=== PATIENT | female | born 1970 | race Caucasian/White ===

== ENCOUNTER 2017-02-26 15:46 | Emergency (ER) | payer OTHER, SELFPAY ==
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
== END 2017-02-26 17:50 | disposition home or self-care (01) ==
LOC: MW.ED 15:46
CPT/HCPCS: 99281; 99283

== ENCOUNTER 2017-06-23 14:18 | Emergency (ER) | payer OTHER, SELFPAY ==
[2017-06-23] MEDS ORDERED: Ketorolac 30 MG/ML SDV IVPUSH ONE (14:58)
[2017-06-23] MEDS ORDERED: Sodium Chloride 0.9% 2.5 ML Syringe FLUSH PRN (14:58)
[2017-06-23] MEDS ORDERED: Sodium Chloride 0.9% 10 ML Syringe FLUSH PRN (14:58)
[2017-06-23 15:19] LABS: CHLORIDE,CL 108 mmol/L (98-110); SODIUM,NA 140 mmol/L (136-146)
[2017-06-23] MEDS ORDERED: Sodium Chloride 0.9% 1,000 ML IV ONE (15:23)
--- NOTE | 2017-06-23 15:47 | US ---
EXAMINATION: Right upper quadrant ultrasound HISTORY: Pain COMPARISON: None TECHNIQUE: Grayscale and color Doppler images obtained of the right upper quadrant. FINDINGS: The visualized pancreas appears normal. The liver is normal in contour and mildly increase d in echogenicity without a focal hepatic mass. The gallbladder wall thickness is mildly prominent h owever the gallbladder is minimally filled. No cholelithiasis identified. Common bile duct measures 4 mm. The sonographic Aquino sign is reported positive. The right kidney measures 10 cm [id number] without evidence of hydronephrosis. IMPRESSION: 1. Positive sonographic Aquino sign with mild gallbladder wall thickening. However the gallbladder i s minimally filled and no shadowing gallstones identified. 2. Mild fatty infiltration of the liver.
--- NOTE | 2017-06-23 15:57 | EDM.PDOC ---
ED HPI GENERAL MEDICAL PROBLEM - General Chief Complaint: Abdominal Pain Stated Complaint: PAIN ON RIGHT SIDE OF ABDOMEN Time Seen by Provider: 06/23/17 14:39 Source of Information: Reports: Patient History Limitations: Reports: No Limitations - History of Present Illness INITIAL COMMENTS - FREE TEXT/NARRATIVE: HISTORY AND PHYSICAL: History of present illness: [39-year-old female with a previous history of gallstones for which she never followed up with surgery now presents emergency department complaining of right upper quadrant abdominal pain. Patient moved to [facility] 5 months ago. Though she had a prior diagnosis of gallstones it had not been bothering her since she moved to [facility]. Last night she of old right upper quadrant pain which worsened overnight. It is worse with movement and with pushing on her abdomen under her right ribs. She's had several episodes of nausea and vomiting and some loose stool as well. Patient takes her gallbladder is acting up. Review of systems: As per history of present illness and below otherwise all systems reviewed and negative. Past medical history: As per history of present illness and as reviewed below otherwise noncontributory. Surgical history: As per history of present illness and as reviewed below otherwise noncontributory. Social history: No reported history of drug or alcohol abuse. Family history: As per history of present illness and as reviewed below otherwise noncontributory. Physical exam: Alert well-appearing no acute distress positive right upper quadrant tenderness no CVA tenderness nontender McBurney's point remainder of exam is benign with normal bowel sounds HEENT: Atraumatic, normocephalic, pupils reactive, negative for conjunctival pallor or scleral icterus, mucous membranes moist, throat clear, neck supple, nontender, trachea midline. Lungs: Clear to auscultation, breath sounds equal bilaterally, chest nontender. Heart: S1S2, regular, negative for clicks, rubs, or JVD. Abdomen: Soft, nondistended, exam as above Negative for masses or hepatosplenomegaly. Negative for costovertebral tenderness. Pelvis: Stable nontender. 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: Deferred. Rectal: Deferred. Extremities: Atraumatic, negative for cords or calf pain. Neurovascular unremarkable. Neuro: Awake, alert, oriented. Cranial nerves grossly unremarkable. Cerebellum unremarkable. Motor and sensory unremarkable throughout. Exam nonfocal. Diagnostics: [Ultrasound the abdomen and full laboratory workup pending] Therapeutics: [IV fluids Toradol and Zofran] Impression: [Abdominal pain] Plan: [Signs and symptoms consistent with exacerbation of biliary disease with cholelithiasis known to this patient but never treated. Full workup pending vital signs stable and well-appearing patient.] Mild gallbladder wall thickening with suggestion of a positive Aquino's sign however no stones or distention visible normal common bile duct. No pericholecystic fluid or other secondary findings of cholecystitis. Patient's laboratory workup is completely unremarkable. She appears to have a clearly identifiable contributory anxiety component to her presentation today. Significantly improved after Ativan and analgesia. Her vital signs are stable and she is well-appearing with no active nausea vomiting and pain is well controlled. Case discussed with Dr. Wilfredo Olsen surgery business analysis professional who is aware of history and findings and agrees with outpatient follow-up in the office tomorrow for reevaluation and to discuss further workup and treatment as needed. Definitive disposition and diagnosis as appropriate pending reevaluation and review of above. Right Abdominal Pain Score (Numeric/FACES): 6 - Related Data Allergies Allergy/AdvReac Type Severity Reaction Status Date / Time codeine Allergy Rash Verified 07/19/17 22:46 Sulfa (Sulfonamide Allergy Chills Verified 07/19/17 22:46 Antibiotics) Home Meds: Home Meds ClonazePAM [KlonoPIN] 1 mg PO BID 06/23/17 [History] Lansoprazole [Prevacid] 15 mg PO DAILY 06/23/17 [History] Sertraline [Zoloft] 100 mg PO DAILY 06/23/17 [History] traZODone 150 mg PO DAILY 06/23/17 [History] oxyCODONE 1 tab PO ASDIRECTED PRN 07/08/17 [History] Past Medical History - Past Health History Medical/Surgical History: Denies Medical/Surgical History Respiratory History: Reports: Asthma 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: Psychiatric History: Reports: Anxiety, Bipolar, Depression, Psych Hospitalization(s), PTSD - Infectious Disease History Infectious Disease History: Reports: Chicken Pox Social & Family History - Family History Family Medical History: Noncontributory - Tobacco Use Smoking Status *Q: Never Smoker Second Hand Smoke Exposure: No - Caffeine Use Caffeine Use: Reports: Soda, Tea - Recreational Drug Use Recreational Drug Use: No ED ROS GENERAL - Review of Systems Review Of Systems: See Below (History of present illness) ED EXAM, GENERAL - Physical Exam Exam: See Below (History of present illness) Course - Vital Signs Last Recorded V/S: Last Vital Signs Temp 36.0 C 06/23/17 19:07 Pulse 56 L 06/23/17 19:07 Resp 16 06/23/17 19:07 BP 126/58 L 06/23/17 19:07 Pulse Ox 94 L 06/23/17 19:07 - Orders/Labs/Meds Labs: Laboratory Tests 06/23/17 06/23/17 06/23/17 Range/Units 14:44 14:44 14:44 WBC 7.04 (4.0-11.0) K/uL RBC 4.17 L (4.30-5.90) M/uL Hgb 13.3 (12.0-16.0) g/dL Hct 38.2 (36.0-46.0) % MCV 91.6 (80.0-98.0) fL MCH 31.9 (27.0-32.0) pg MCHC 34.8 (31.0-37.0) g/dL RDW Std Deviation 42.8 (28.0-62.0) fl RDW Coeff of Fina 13 (11.0-15.0) % Plt Count 184 (150-400) K/uL MPV 10.90 (7.40-12.00) fL Neut % (Auto) 63.0 (48.0-80.0) % Lymph % (Auto) 27.7 (16.0-40.0) % [place] % (Auto) 6.5 (0.0-15.0) % Eos % (Auto) 2.4 (0.0-7.0) % Baso % (Auto) 0.4 (0.0-1.5) % Neut # (Auto) 4.4 (1.4-5.7) K/uL Lymph # (Auto) 2.0 (0.6-2.4) K/uL [place] # (Auto) 0.5 (0.0-0.8) K/uL Eos # (Auto) 0.2 (0.0-0.7) K/uL Baso # (Auto) 0.0 (0.0-0.1) K/uL Nucleated RBC % 0.0 /100WBC Nucleated RBCs # 0 K/uL Sodium 140 (136-146) mmol/L Potassium 3.6 (3.5-5.1) mmol/L Chloride 108 (98-110) mmol/L Carbon Dioxide 24 (21-31) mmol/L BUN 8 (6.0-23.0) mg/dL Creatinine 0.9 (0.6-1.5) mg/dL Est Cr Clr Drug Dosing TNP Estimated GFR (MDRD) > 60.0 ml/min Glucose 109 (60-110) mg/dL Calcium 8.7 L (8.8-10.8) mg/dL Total Bilirubin 0.3 (0.1-1.5) mg/dL AST 16 (5-40) IU/L ALT 17 (8-54) IU/L Alkaline Phosphatase 102 (40-150) Total Protein 6.9 (6.0-8.0) g/dL Albumin 3.8 (3.5-5.0) g/dL Globulin 3.1 (2.0-3.5) g/dL Albumin/Globulin Ratio 1.2 L (1.3-2.8) Lipase 12 (7-80) U/L Urine Color YELLOW Urine Appearance CLEAR Urine pH 6.0 (5.0-8.0) Ur Specific [place] <= 1.005 (1.001-1.035) Urine Protein NEGATIVE (NEGATIVE) mg/dL Urine Glucose (UA) NEGATIVE (NEGATIVE) mg/dL Urine Ketones NEGATIVE (NEGATIVE) mg/dL Urine Occult Blood NEGATIVE (NEGATIVE) Urine Nitrite NEGATIVE (NEGATIVE) Urine Bilirubin NEGATIVE (NEGATIVE) Urine Urobilinogen 0.2 (<2.0) EU/dL Ur Leukocyte Esterase SMALL (NEGATIVE) Urine RBC ns (0-2/HPF) Urine WBC 2-4 (0-5/HPF) Ur Epithelial Cells RARE (NONE-FEW) Amorphous Sediment NOT SEEN (NEGATIVE) Urine Bacteria NOT SEEN (NEGATIVE) Urine Mucus NOT SEEN (NONE-MOD) Meds: Medications Discontinued Medications Generic Name Dose Route Start Last Admin Trade Name Freq PRN Reason Stop Dose Admin Hydromorphone HCl 0.5 mg 06/23/17 16:42 06/23/17 16:48 Dilaudid IVPUSH 06/23/17 16:43 0.5 mg ONETIME ONE Administration Hydromorphone HCl 1 mg 06/23/17 17:45 06/23/17 18:08 Dilaudid IM 06/23/17 17:46 1 mg ONETIME ONE Administration Sodium Chloride 1,000 mls @ 999 mls/hr 06/23/17 15:23 06/23/17 15:49 Normal Saline IV 06/23/17 16:23 999 mls/hr STAT ONE Administration Ketorolac Tromethamine 30 mg 06/23/17 14:58 06/23/17 15:48 Toradol IVPUSH 06/23/17 14:59 30 mg ONETIME ONE Administration Lorazepam 0.5 mg 06/23/17 17:49 06/23/17 18:14 Ativan IVPUSH 06/23/17 17:50 0.5 mg ONETIME ONE Administration Ondansetron HCl 4 mg 06/23/17 17:49 06/23/17 18:08 Zofran IVPUSH 06/23/17 17:50 4 mg ONETIME ONE Administration Sodium Chloride 10 ml 06/23/17 14:58 06/23/17 15:49 Saline Flush FLUSH 10 ml ASDIRECTED PRN Administration Keep Vein Open Sodium Chloride 2.5 ml 06/23/17 14:58 06/23/17 15:49 Saline Flush FLUSH 2.5 ml ASDIRECTED PRN Administration Keep Vein Open Departure - Departure Time of Disposition: 18:36 Disposition: Home, Self-Care 01 Condition: Good Clinical Impression: Right upper quadrant abdominal pain, Thickening of wall of gallbladder, Anxiety - Discharge Information Instructions: Abdominal Pain, Adult, [id number] Referrals: Baylee Gonzalez NP [Primary Care Provider] - Wilfredo White MD [Physician] - Forms: ED Department Discharge Additional Instructions: Your gallbladder does show some very mild wall thickening on the ultrasound. There are no signs of a surgical emergency and no stones were visible. It is possible that your pain may be from very mild inflammation in the gallbladder however it is draining normally per the ultrasound results. The results of your laboratory studies are all reassuring and do not reflect any surgical emergency. You may need to have your gallbladder out as an outpatient, and it's important that you follow-up with surgery tomorrow as directed to discuss your case further. Your situation has been discussed with Dr. Villalobos leave the surgeon on-call today. He is aware the history and findings today and will be happy to see you in his office tomorrow. Call first thing the morning for an appointment tomorrow. Make sure the staff is aware that Dr. Amador in the emergency department spoke with Dr. White and he dated specifically that he wants to fit you into his full schedule tomorrow. Take Zofran by putting one pill under your tongue every 4 hours as needed for nausea, take ibuprofen 800 mg every 6 hours as needed for pain, and use Naylor one every 6 hours as needed for breakthrough pain. Do not take any muscle relaxants or drink any alcohol in addition to this narcotic.
[2017-06-23] MEDS ORDERED: HYDROmorphone 2 MG/ML Syringe IVPUSH ONE (16:42)
[2017-06-23] MEDS ORDERED: HYDROmorphone 1 MG/ML Syringe IM ONE (17:45)
[2017-06-23] MEDS ORDERED: Ondansetron 4 MG/2 ML SDV IVPUSH ONE (17:49)
[2017-06-23] MEDS ORDERED: LORazepam 2 MG/ML MDV IVPUSH ONE (17:49)
[2017-06-23 19:14] VITALS: BP 126/58
== END 2017-06-23 19:34 | disposition home or self-care (01) ==
LOC: MW.ED 14:18
DX: K82.9 Disease of gallbladder, unspecified (principal); F41.9 Anxiety disorder, unspecified; J45.909 Unspecified asthma, uncomplicated; F32.9 Major depressive disorder, single episode, unspecified; Z88.5 Allergy status to narcotic agent; Z88.2 Allergy status to sulfonamides; Z79.899 Other long term (current) drug therapy
CPT/HCPCS: 76705; 80053; 81001; 83690; 85025; 96361; 96374; 96375; 99284; J1170; J1885; J2060; J2405; J7040

== ENCOUNTER 2017-06-26 19:04 | Emergency (ER) | payer OTHER, SELFPAY ==
[2017-06-26] MEDS ORDERED: Ketorolac 30 MG/ML SDV IVPUSH ONE (19:22)
[2017-06-26] MEDS ORDERED: Sodium Chloride 0.9% 1,000 ML IV ONE (19:22)
[2017-06-26] MEDS ORDERED: Ondansetron 4 MG/2 ML SDV IVPUSH ONE ×2 (19:22→20:09)
[2017-06-26 20:06] LABS: CHLORIDE,CL 107 mmol/L (98-110); SODIUM,NA 140 mmol/L (136-146)
--- NOTE | 2017-06-26 20:07 | EDM.PDOC ---
ED HPI GENERAL MEDICAL PROBLEM - General Chief Complaint: Abdominal Pain Stated Complaint: GALLBLADDER Time Seen by Provider: 06/26/17 19:05 Source of Information: Reports: Patient History Limitations: Reports: No Limitations - History of Present Illness INITIAL COMMENTS - FREE TEXT/NARRATIVE: History of present illness: 47-year-old female presenting with complaints of upper abdominal pain. Patient indicates that she had a workup a few days ago and it was determined that there was some problem with her gallbladder but that there were not stone specific. Patient was seen by Dr. Olsen who indicated that he wanted further diagnostic exams. Patient indicated that the pain has returned it is worse and she cannot tolerate it. Patient reports nausea vomiting and diarrhea. Review of systems: As per history of present illness and below otherwise all systems reviewed and negative. Past medical history: As per history of present illness and as reviewed below otherwise noncontributory. Surgical history: As per history of present illness and as reviewed below otherwise noncontributory. Social history: No reported history of drug or alcohol abuse. Family history: As per history of present illness and as reviewed below otherwise noncontributory. Physical exam: HEENT: Atraumatic, normocephalic, pupils reactive, negative for conjunctival pallor or scleral icterus, mucous membranes moist, throat clear, neck supple, nontender, trachea midline. Lungs: Clear to auscultation, breath sounds equal bilaterally, chest nontender. Heart: S1S2, regular, negative for clicks, rubs, or JVD. Abdomen: Soft, distended abdomen tender in bilateral upper quadrants. Negative for masses or hepatosplenomegaly. Negative for costovertebral tenderness. Pelvis: Stable nontender. 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: Deferred. Rectal: Deferred. Extremities: Atraumatic, negative for cords or calf pain. Neurovascular unremarkable. Neuro: Awake, alert, oriented. Cranial nerves II through XII unremarkable. Cerebellum unremarkable. Motor and sensory unremarkable throughout. Exam nonfocal. Dr. Olsen present in ED for consult evaluated patient when he went into the room patient was asleep apparently intractable pain was resolved Diagnostics: [CBC, CMP, CT of abdomen with contrast] Therapeutics: [IV fluid, Toradol, Zofran] Impression: [Abdominal pain] Plan: [HIDA scan on Thursday per Dr. Olsen] Definitive disposition and diagnosis as appropriate pending reevaluation and review of above. Right Upper Abdomen Pain Score (Numeric/FACES): 10 - Related Data Allergies Allergy/AdvReac Type Severity Reaction Status Date / Time codeine Allergy Rash Verified 02/26/17 16:12 Sulfa (Sulfonamide Allergy Chills Verified 06/26/17 19:21 Antibiotics) Home Meds: Home Meds ClonazePAM [KlonoPIN] 1 mg PO BID 06/23/17 [History] Hydrocodone/Acetaminophen [[place] 5-325 Tablet] 1 each PO Q6H PRN #10 tablet 12/09 [Rx] Lansoprazole [Prevacid] 15 mg PO DAILY 06/23/17 [History] Ondansetron [Zofran ODT] 4 mg SL Q4H PRN #16 tab.dis 06/23/17 [Rx] Sertraline [Zoloft] 100 mg PO DAILY 06/23/17 [History] traZODone 150 mg PO ONETIME 06/23/17 [History] Acetaminophen/oxyCODONE [Percocet 325-5 MG] 5 - 325 mg PO Q6HR PRN 06/26/17 [ History] Past Medical History - Past Health History Medical/Surgical History: Denies Medical/Surgical History Respiratory History: Reports: Asthma Gastrointestinal History: Reports: Cholelithiasis 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 History: Reports: None 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: Psychiatric History: Reports: Anxiety, Bipolar, Depression, Psych Hospitalization(s), PTSD - Infectious Disease History Infectious Disease History: Reports: Chicken Pox - Past Surgical History Respiratory Surgical History: Reports: None GI Surgical History: Reports: None Female Surgical History: Reports: Section Social & Family History - Family History Family Medical History: Noncontributory - Tobacco Use Smoking Status *Q: Never Smoker Second Hand Smoke Exposure: No - Caffeine Use Caffeine Use: Reports: Soda Caffeine Use Comment: 2drinks/day - Recreational Drug Use Recreational Drug Use: No ED ROS GENERAL - Review of Systems Review Of Systems: See Below (See history of present illness) ED EXAM, GI/ABD - Physical Exam Exam: See Below (See history of present illness) Course - Vital Signs Last Recorded V/S: Last Vital Signs Temp 36.2 C 06/26/17 19:15 Pulse 57 L 06/26/17 21:52 Resp 17 06/26/17 21:52 BP 131/71 06/26/17 21:52 Pulse Ox 96 06/26/17 21:52 - Orders/Labs/Meds Orders: Active Orders 24 hr Category Date Time Status Abdomen Pelvis w Cont [CT] Stat Exams 06/26/17 19:53 Taken HIDA with EF [Cholescintigraphy w Pharm Int] [NM] Timed Exams 06/29/17 09:00 Ordered Labs: Laboratory Tests 06/26/17 06/26/17 Range/Units 19:34 19:34 WBC 7.14 (4.0-11.0) K/uL RBC 4.12 L (4.30-5.90) M/uL Hgb 12.9 (12.0-16.0) g/dL Hct 38.3 (36.0-46.0) % MCV 93.0 (80.0-98.0) fL MCH 31.3 (27.0-32.0) pg MCHC 33.7 (31.0-37.0) g/dL RDW Std Deviation 43.4 (28.0-62.0) fl RDW Coeff of Fina 13 (11.0-15.0) % Plt Count 174 (150-400) K/uL MPV 10.40 (7.40-12.00) fL Neut % (Auto) 57.4 (48.0-80.0) % Lymph % (Auto) 31.7 (16.0-40.0) % [place] % (Auto) 6.7 (0.0-15.0) % Eos % (Auto) 3.8 (0.0-7.0) % Baso % (Auto) 0.4 (0.0-1.5) % Neut # (Auto) 4.1 (1.4-5.7) K/uL Lymph # (Auto) 2.3 (0.6-2.4) K/uL [place] # (Auto) 0.5 (0.0-0.8) K/uL Eos # (Auto) 0.3 (0.0-0.7) K/uL Baso # (Auto) 0.0 (0.0-0.1) K/uL Nucleated RBC % 0.0 /100WBC Nucleated RBCs # 0 K/uL Sodium 140 (136-146) mmol/L Potassium 3.6 (3.5-5.1) mmol/L Chloride 107 (98-110) mmol/L Carbon Dioxide 24 (21-31) mmol/L BUN 9 (6.0-23.0) mg/dL Creatinine 0.9 (0.6-1.5) mg/dL Est Cr Clr Drug Dosing 71.56 mL/min Estimated GFR (MDRD) > 60.0 ml/min Glucose 93 (60-110) mg/dL Calcium 8.5 L (8.8-10.8) mg/dL Total Bilirubin 0.2 (0.1-1.5) mg/dL AST 18 (5-40) IU/L ALT 16 (8-54) IU/L Alkaline Phosphatase 99 (40-150) Total Protein 6.5 (6.0-8.0) g/dL Albumin 3.6 (3.5-5.0) g/dL Globulin 2.9 (2.0-3.5) g/dL Albumin/Globulin Ratio 1.2 L (1.3-2.8) Meds: Medications Discontinued Medications Generic Name Dose Route Start Last Admin Trade Name Thierno PRN Reason Stop Dose Admin Fentanyl 50 mcg 06/26/17 20:09 06/26/17 20:17 Sublimaze IVPUSH 06/26/17 20:10 50 mcg ONETIME ONE Administration Sodium Chloride 1,000 mls @ 999 mls/hr 06/26/17 19:22 06/26/17 19:40 Normal Saline IV 06/26/17 20:22 999 mls/hr STAT ONE Administration Ketorolac Tromethamine 30 mg 06/26/17 19:22 06/26/17 19:41 Toradol IVPUSH 06/26/17 19:23 30 mg ONETIME ONE Administration Ondansetron HCl 4 mg 06/26/17 19:22 06/26/17 19:41 Zofran IVPUSH 06/26/17 19:23 4 mg ONETIME ONE Administration Ondansetron HCl 4 mg 06/26/17 20:09 06/26/17 20:17 Zofran IVPUSH 06/26/17 20:10 4 mg ONETIME ONE Administration Departure - Departure Time of Disposition: 22:09 Disposition: Home, Self-Care 01 Condition: Good Clinical Impression: Abdominal pain - Discharge Information Forms: ED Department Discharge Additional Instructions: The following information is given to patients seen in the emergency department who are being discharged to home. This information is to outline your options for follow-up care. We provide all patients seen in our emergency department with a follow-up referral. The need for follow-up, as well as the timing and circumstances, are variable depending upon the specifics of your emergency department visit. If you don't have a primary care physician on staff, we will provide you with a referral. We always advise you to contact your personal physician following an emergency department visit to inform them of the circumstance of the visit and for follow-up with them and/or the need for any referrals to a consulting specialist. The emergency department will also refer you to a specialist when appropriate. This referral assures that you have the opportunity for follow-up care with a specialist. All of these measure are taken in an effort to provide you with optimal care, which includes your follow-up. Under all circumstances we always encourage you to contact your private physician who remains a resource for coordinating your care. When calling for follow-up care, please make the office aware that this follow-up is from your recent emergency room visit. If for any reason you are refused follow-up, please contact the [facility] Emergency Department at and asked to speak to the emergency department charge nurse. You have been scheduled for a HIDA scan at 9:00 on Thursday morning Return to the hospital no later than 8:30 for check-in Follow-up with ED only in cases of emergency as discussed - My Orders Last 24 Hours: My Active Orders 06/26/17 19:53 Abdomen Pelvis w Cont [CT] Stat 06/29/17 09:00 HIDA with EF [Cholescintigraphy w Pharm Int] [NM] Timed - Assessment/Plan Last 24 Hours: My Active Orders 06/26/17 19:53 Abdomen Pelvis w Cont [CT] Stat 06/29/17 09:00 HIDA with EF [Cholescintigraphy w Pharm Int] [NM] Timed
[2017-06-26] MEDS ORDERED: fentaNYL 100 MCG/2 ML SDV IVPUSH ONE (20:09)
[2017-06-26 22:42] VITALS: BP 136/90
[2017-06-27] MEDS ORDERED: Iopamidol 755 MG/ML 500 ML Multipack Bottle IVPUSH STA (04:38)
--- NOTE | 2017-06-29 10:05 | CT ---
EXAM DATE: 06/26/17 PATIENT'S AGE: 47 Patient: MATTHEW MARTINEZ Facility: [place], [place] Site . Site : 1970 Study: CT Abdomen/Pelvis [id number] 8:58:33 PM Ordering Physician: Doctor Mcmahan Final Report: INDICATION: N/V, diarrhea X5 days TECHNIQUE: CT abdomen and pelvis acquired with IV contrast. COMPARISON: None FINDINGS: Lower chest: Nonspecific noncalcified 11 mm pulmonary nodule within the left lower lobe seen on series 201, image 27. Liver: Unremarkable. Spleen: Unremarkable. Pancreas: Unremarkable. Gallbladder and bile ducts: The common bile duct is dilated measuring up to 9 mm. No filling defect appreciated. Kidneys: Nonobstructive intrarenal calculi within the upper pole of the right kidney. Partial duplication of the right renal collecting system. Adrenal glands: Unremarkable. GI tract: Hiatal hernia. Appendix is normal. Vascular structures: Negative. No sign of aneurysm. Lymph nodes: Unremarkable. Miscellaneous: Fat containing umbilical hernia. Nonspecific 1.1 x 1.3 cm structure with associated punctate calcifications within the posterior left pelvis. No free air or significant free fluid. Pelvic Organs: Unremarkable. Bones: Degenerative changes. Fusion changes spanning the L4 through S1 levels with no evidence of hardware complication. Nonspecific sclerotic bone lesions within the left pubic body, left femoral head. IMPRESSION: 1. Nonspecific dilatation of the common bile duct measuring 9 mm. No filling defect appreciated. 2. Nonspecific 1.3 cm structure with associated punctate calcifications within the posterior left pelvis. Recommend comparison with any prior imaging of this region to evaluate for stability /chronicity. 3. Nonobstructive intrarenal calculi within the upper pole of the right kidney. 4. Nonspecific noncalcified 11 mm pulmonary nodule within the left lower lobe. Recommend comparison with any prior cross-sectional imaging of the chest to evaluate for stability/ chronicity and/ or followup per Fleischner criteria. Dictated by Selvin Esteban MD @ 06/26/2017 9:20:51 PM Dictated by: Selvin Esteban MD @ 06/26/2017 21:21:03 (Electronic Signature) Report Signed by Proxy. [facility]
--- NOTE | 2017-06-29 11:29 | CONS ---
DATE OF CONSULTATION: 06/26/2017 DATE OF : 1970 PRIMARY CARE PHYSICIAN: None PCP Concerning question is abdominal pain. HISTORY OF PRESENT ILLNESS: The patient is a 47-year-old female, who has seen me in the office two days ago for abdominal pain, similar pattern and after workup in the emergency room ultrasound showed no stone and no white count, and seen in my office. I advised the patient to take only liquid diet and then probably have a HIDA scan to workup her gallbladder. The patient today seen in the emergency room because she stopped to have some yolker in the morning and then after that she has thrown up and pain came back, and she says it was so bad that she cannot go to work and she is very miserable, and just requires something to be done in the emergency room. Denied fever or chills. Pain is on a scale of 10 of 9/10. PAST MEDICAL HISTORY: Please refer to office note for details. PAST SURGICAL HISTORY: Please refer to office note for details. ALLERGIES: Please refer to office note for details. MEDICATIONS: Please refer to office note for details. PHYSICAL EXAMINATION: VITAL SIGNS: In the emergency room, temperature 97.2, blood pressure 131/71. HEENT: Normocephalic, atraumatic. Sclerae anicteric. LUNGS: Clear to auscultation. ABDOMEN: Soft and active bowel sounds. LABORATORY DATA: Upon consultation, white count is 7, sodium is 140, potassium is 3.6, BUN is 9, creatinine 0.9, and liver function tests within normal limits. Total bilirubin is 0.2, alkaline phosphatase is 99. Amylase and lipase are normal, 59 and 11. UA was a few days ago. The patient had a CAT scan and CAT scan shows among other things lung nodule and nonobstructing kidney stone on the right side and lung nodule on the left side and a fat containing umbilical hernia, but no free fluid, no stone, nonspecific, mildly dilated common bile duct 9 mm from CAT scan. IMPRESSION: The patient's pain has been going on for 1-1/2 years. [id number]-vuy-[id number]-half years ago, the patient had a laparoscopic exploration per the patient and did not find anything. The patient has been seen in the emergency room and also seen by myself in the office. The patient would benefit from CCK HIDA done to determine whether there is any acalculous cholecystitis and otherwise the patient has no white count, has no fever, and the patient was soundly snoring. Upon waiting in the emergency room, we will recommend to give supportive care to the patient, treat the patient symptomatically and proceed with HIDA scan in a timely basis, CCK HIDA, and I will see the patient returning after the study. As always, thank you for the kind referral. ISSAC / CANDY /[id number] Cc: Dr. Kellogg in ER
== END 2017-06-26 22:42 | disposition home or self-care (01) ==
LOC: MW.ED 19:04
DX: R10.10 Upper abdominal pain, unspecified (principal); J45.909 Unspecified asthma, uncomplicated; F41.9 Anxiety disorder, unspecified; F32.9 Major depressive disorder, single episode, unspecified; Z88.5 Allergy status to narcotic agent; Z88.2 Allergy status to sulfonamides; Z79.899 Other long term (current) drug therapy
CPT/HCPCS: 36415; 74177; 80053; 85025; 96361; 96374; 96375; 96376; 99284; J1885; J2405; J3010; J7040

== ENCOUNTER 2017-07-10 09:41 | Day surgery (SDC) | payer OTHER, SELFPAY ==
[~2017-07-10 09:41] MED LIST: Bupivacaine 0.25%/EPINEPHrine 1:200,000 10 ML SDV ONE; Lactated Ringers 1,000 ML IV SCH; Octyl 2-Cyanoacrylate 1 Tube ONE; ceFAZolin 2 GM in Premix Bag 1 BAG IV ONE
[2017-07-10] MEDS ORDERED: Lidocaine 2% 5 ML SDV ONE (10:10)
[2017-07-10] MEDS ORDERED: Rocuronium 10 MG/ML 10 ML Syringe ONE (10:10)
[2017-07-10] MEDS ORDERED: Ondansetron 4 MG/2 ML SDV ONE (10:10)
[2017-07-10] MEDS ORDERED: diphenhydrAMINE 50 MG/ML SDV ONE (10:11)
[2017-07-10] MEDS ORDERED: Propofol 200 MG/20 ML SDV ONE (10:11)
[2017-07-10] MEDS ORDERED: Midazolam 1 MG/ML 2 ML SDV ONE (10:11)
[2017-07-10] MEDS ORDERED: Sodium Chloride 0.9% 20 ML ONE (10:15)
[2017-07-10] MEDS ORDERED: Scopolamine 1.5 MG Transdermal Patch TRDERM PRN (10:29)
--- NOTE | 2017-07-10 10:29 | PCM.PREANE ---
Preanesthetic Assessment - Anesthesia/Transfusion/Family Hx Anesthesia History: Prior Anesthesia Without Reaction Family History of Anesthesia Reaction: No Transfusion History: No Prior Transfusion(s) - Review of Systems General: No Symptoms Pulmonary: No Symptoms Cardiovascular: No Symptoms Gastrointestinal: Nausea Neurological: No Symptoms Other: Reports: None - Physical Assessment NPO Status Date: 07/09/17 O2 Sat by Pulse Oximetry: 96 Respiratory Rate: 16 Vital Signs: Last Vital Signs Temp 36.5 C 07/10/17 09:54 Pulse 66 07/10/17 09:54 Resp 16 07/10/17 09:54 BP 123/81 07/10/17 09:54 Pulse Ox 96 07/10/17 09:54 Height: 1.68 m Weight: 90.718 kg ASA Class: 2 Mental Status: Alert & Oriented x3 Airway Class: Mallampati = 2 Dentition: Reports: [place](s) (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) ROM/Head Extension: Full Lungs: Clear to Auscultation, Normal Respiratory Effort Cardiovascular: Regular Rate, Regular Rhythm - Allergies Allergies/Adverse Reactions: Allergies Allergy/AdvReac Type Severity Reaction Status Date / Time codeine Allergy Rash Verified 02/26/17 16:12 Sulfa (Sulfonamide Allergy Chills Verified 06/26/17 19:21 Antibiotics) - Anesthesia Plan Pre-Op Medication Ordered: Other (scop) - Acknowledgements Anesthesia Type Planned: General Anesthesia Pt an Appropriate Candidate for the Planned Anesthesia: Yes Alternatives and Risks of Anesthesia Discussed w Pt/Guardian: Yes Pt/Guardian Understands and Agrees with Anesthesia Plan: Yes PreAnesthesia Questionnaire - Past Health History Medical/Surgical History: Denies Medical/Surgical History HEENT History: Reports: Other (See Below) Other HEENT History: wears glasses/contacts Respiratory History: Reports: Asthma Gastrointestinal History: Reports: Cholelithiasis, GERD 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: Musculoskeletal History: Reports: Fracture Psychiatric History: Reports: Anxiety, Bipolar, Depression, Psych Hospitalization(s), PTSD Endocrine/Metabolic History: Reports: Obesity/BMI 30+ - Infectious Disease History Infectious Disease History: Reports: Chicken Pox - Past Surgical History Head Surgeries/Procedures: Reports: None Respiratory Surgical History: Reports: None GI Surgical History: Reports: None Female Surgical History: Reports: Section Neurological Surgical History: Reports: Lumbar Spine Other Neurological Surgeries/Procedures: back surgery x2 Other Musculoskeletal Surgeries/Procedures:: surgical repair of left wrist - SUBSTANCE USE Smoking Status *Q: Never Smoker Second Hand Smoke Exposure: No Recreational Drug Use History: No - HOME MEDS Home Medications: Home Meds ClonazePAM [KlonoPIN] 1 mg PO BID 06/23/17 [History] Lansoprazole [Prevacid] 15 mg PO DAILY 06/23/17 [History] Sertraline [Zoloft] 100 mg PO DAILY 06/23/17 [History] traZODone 150 mg PO DAILY 06/23/17 [History] oxyCODONE 1 tab PO ASDIRECTED PRN 07/08/17 [History] - CURRENT (IN HOUSE) MEDS Current Meds: Current Medications Lactated Ringer's (Ringers, Lactated) 1,000 mls @ 125 mls/hr IV ASDIRECTED [facility] Last Admin: 07/10/17 09:59 Dose: 125 mls/hr Discontinued Medications Bupivacaine HCl/Epinephrine Bitart (Marcaine 0.25%/Epinephrine 1:200,000) Confirm Administered Dose 30 ml .ROUTE .STK-MED ONE Stop: 07/10/17 09:11 Diphenhydramine HCl (Benadryl) Confirm Administered Dose 50 mg .ROUTE .STK-MED ONE Stop: 07/10/17 10:12 Lactated Ringer's (Ringers, Lactated) 1,000 mls @ 125 mls/hr IV ASDIRECTED [facility] Cefazolin Sodium/Dextrose 2 gm (/ Premix) 50 mls @ 100 mls/hr IV ONETIME ONE Stop: 07/10/17 00:01 Cefazolin Sodium/Dextrose 2 gm (/ Premix) 50 mls @ 100 mls/hr IV ONETIME ONE Stop: 07/10/17 05:29 Sufentanil Citrate (Sufentanil Citrate) Confirm Administered Dose 1 mls @ as directed .ROUTE .STK-MED ONE Stop: 07/10/17 10:15 Sodium Chloride (Normal Saline) Confirm Administered Dose 20 mls @ as directed .ROUTE .STK-MED ONE Stop: 07/10/17 10:16 Lidocaine (Xylocaine-Mpf 2%) Confirm Administered Dose 5 ml .ROUTE .STK-MED ONE Stop: 07/10/17 10:11 Midazolam HCl (Versed 1 Mg/Ml) Confirm Administered Dose 2 mg .ROUTE .STK-MED ONE Stop: 07/10/17 10:12 Octyl Cyanoacrylate (Dermabond Advance) Confirm Administered Dose 1 applic .ROUTE .STUnitrends Software-MED ONE Stop: 07/10/17 09:13 Ondansetron HCl (Zofran) Confirm Administered Dose 4 mg .ROUTE .STUnitrends Software-MED ONE Stop: 07/10/17 10:11 Propofol (Diprivan 20 Ml) Confirm Administered Dose 200 mg .ROUTE .STUnit[employer] Software-MED ONE Stop: 07/10/17 10:12 Rocuronium [place] (Zemuron) Confirm Administered Dose 100 mg .ROUTE .STUnitrends Software-MED ONE Stop: 07/10/17 10:11
[2017-07-10] MEDS ORDERED: Neostigmine Methylsulfate 1 MG/ML 5 ML Syringe ONE (12:25)
--- NOTE | 2017-07-10 12:43 | PCM.OPNOTE ---
- General Post-Op/Procedure Note Date of Surgery/Procedure: 07/10/17 Operative Procedure(s): lap deniz Findings: gb w severe adherence to surrounding organs, yellow and green, cw chronic cholecystitis; wall is not thickened [id number] Pre Op Diagnosis: biliary dyskinesia Post-Op Diagnosis: chronic and acute cholecystitis Anesthesia Technique: General ET Tube Primary Surgeon: Wilfredo White Pathology: sent Complications: None Condition: Good
[2017-07-10] MEDS: fentaNYL 100 MCG/2 ML SDV IVPUSH PRN ×2 (13:13→13:24)
[2017-07-10] MEDS ORDERED: Ketorolac 30 MG/ML SDV IVPUSH ONE (13:17)
[2017-07-10] MEDS ORDERED: Acetaminophen 1,000 MG in Premix Bag 1 BAG IV ONE (13:40)
--- NOTE | 2017-07-10 13:40 | PCM.POSTAN ---
POST ANESTHESIA ASSESSMENT - MENTAL STATUS Mental Status: Alert, Oriented - RESPIRATORY Respiratory Status: Respiratory Rate WNL, Airway Patent, O2 Saturation Stable - CARDIOVASCULAR CV Status: Pulse Rate WNL, Blood Pressure Stable - GASTROINTESTINAL GI Status: No Symptoms - PAIN Pain Score: 10 (resting quietly, sleeping when not stimulated. no clinical signs of extreme pain) - POST OP HYDRATION Hydration Status: Adequate & Stable
[2017-07-10 14:37] VITALS: BP 124/70
--- NOTE | 2017-07-10 16:04 | PCM48HPAN ---
Post Anesthesia Note - EVALUATION WITHIN 48HRS OF ANESTHETIC Vital Signs in Normal Range: Yes Patient Participated in Evaluation: Yes Respiratory Function Stable: Yes Airway Patent: Yes Cardiovascular Function Stable: Yes Hydration Status Stable: Yes Pain Control Satisfactory: Yes Nausea and Vomiting Control Satisfactory: Yes Mental Status Recovered: Yes - COMMENTS/OBSERVATIONS Free Text/Narrative:: Pt reports pain as 5/10 but is ok with it at this time.
--- NOTE | 2017-07-10 16:54 | OR ---
SURGEON: Wilfredo White MD DATE OF PROCEDURE: 07/10/2017 PREOPERATIVE DIAGNOSIS: Biliary hypokinesia. POSTOPERATIVE DIAGNOSIS: Chronic cholecystitis. PROCEDURE PERFORMED: Laparoscopic cholecystectomy. FINDINGS: 1. Gallbladder is severely interacting with surrounding organ and yellow and green consistent with chronic cholecystitis. 2. Wall is not thickened. PROCEDURE NOTE: The patient was taken to the operating room and placed in the supine position. After the intubation of general endotracheal anesthesia, the patient's abdomen was prepped and draped in the usual sterile fashion. Using Optiview, a 12 mm trocar was placed supraumbilically and then followed with pneumoperitoneum. A 5 mm trocar was placed in the epigastrium and two 5 mm trocars placed in the right upper quadrant. The placement of the last three trocars was done under direct video supervision. Upon gaining entrance to the abdominal cavity, an extensive examination was then performed. The gallbladder was located and identified and retracted to the dome of the liver at the triangle of [place]. The cystic duct was clipped three more times and then using the endoscopic clip, was transected with placement of the endoscopic clip and transection was performed with care, ensuring the posterior prong of the instruments were clearly visualized prior to exercising the procedure. The gallbladder was dissected using electrocautery out of the liver bed and then removed using endoscopic bag through the umbilical site. The gallbladder was removed en bloc and there was no bile spillage and this was then followed with extensive irrigation until the bile was clear from blood and bile. The trocars were then removed under direct video supervision. The 12 mm umbilical site was then closed with deep stitches using 0 Vicryl followed with proximal stitches using 3-0 Vicryl and Dermabond. The other three trocar sites were closed with 3-0 Vicryl followed with approximation of skin with Dermabond. The patient was then awakened and extubated and transferred to the recovery room in hemodynamically stable condition. At the conclusion of the surgery, before closing the abdominal wound, instrument count and sponge count were done and were correct. The patient tolerated the procedure well and there were no intraoperative complications. Dr. White was present through the whole procedure. Just before surgery, a timeout was called. The patient was identified and procedure identified and procedure started. In this patient, hemostasis also achieved by the use of Surgicel at the end of the case. They help in hemostasis. As always, thank you for the kind referral. ISSAC GUPTA /[id number]
[2017-07-14] MEDS ORDERED: ceFAZolin 2 GM in Premix Bag 1 BAG IV ONE (05:00)
[2017-07-14] MEDS ORDERED: Lactated Ringers 1,000 ML IV SCH (05:00)
== END 2017-07-10 16:07 | disposition home or self-care (01) ==
LOC: MW.SDS 09:41
PROVIDERS: ATTEND Surgery
DX: K81.1 Chronic cholecystitis (principal); F41.9 Anxiety disorder, unspecified; J45.909 Unspecified asthma, uncomplicated; F31.9 Bipolar disorder, unspecified; K21.9 Gastro-esophageal reflux disease without esophagitis; E66.9 Obesity, unspecified; Z91.5 Personal history of self-harm; Z88.2 Allergy status to sulfonamides; Z88.5 Allergy status to narcotic agent; Z79.899 Other long term (current) drug therapy; Z98.51 Tubal ligation status; Z98.890 Other specified postprocedural states; Z68.32 Body mass index [BMI] 32.0-32.9, adult
CPT/HCPCS: 47562; 81025; 88304; A9270; J1200; J1885; J2250; J2405; J3010; J7120; 00790; J2704

== ENCOUNTER 2017-07-19 22:29 | Emergency (ER) | payer OTHER, SELFPAY ==
[2017-07-19] MEDS ORDERED: Sodium Chloride 0.9% 10 ML Syringe FLUSH PRN (22:46)
[2017-07-19] MEDS ORDERED: Sodium Chloride 0.9% 2.5 ML Syringe FLUSH PRN (22:46)
[2017-07-19] MEDS ORDERED: Ondansetron 4 MG/2 ML SDV IVPUSH ONE (22:47)
[2017-07-19] MEDS ORDERED: Sodium Chloride 0.9% 1,000 ML IV ONE (22:47)
--- NOTE | 2017-07-19 22:51 | EDM.PDOC ---
ED HPI GENERAL MEDICAL PROBLEM - General Chief Complaint: General Stated Complaint: STOMACH PAIN,THROWING UP,NEASUE,HURTS WHEN PEE Time Seen by Provider: 07/19/17 22:39 - History of Present Illness INITIAL COMMENTS - FREE TEXT/NARRATIVE: HISTORY AND PHYSICAL: History of present illness: Patient 47-year-old white female sparsely 2 weeks status post cholecystectomy who presents with concern of mild discomfort nausea and vomiting she states she had increased weakness and poor oral intake. There's been no fever chills nausea vomiting she does equivocate regarding some dysuria. Review of systems: As per history of present illness and below otherwise all systems reviewed and negative. Past medical history: As per history of present illness and as reviewed below otherwise noncontributory. Surgical history: As per history of present illness and as reviewed below otherwise noncontributory. Social history: No reported history of drug or alcohol abuse. Family history: As per history of present illness and as reviewed below otherwise noncontributory. Physical exam: HEENT: Atraumatic, normocephalic, pupils reactive, negative for conjunctival pallor or scleral icterus, mucous membranes moist, throat clear, neck supple, nontender, trachea midline. Lungs: Clear to auscultation, breath sounds equal bilaterally, chest nontender. Heart: S1S2, regular, negative for clicks, rubs, or JVD. Abdomen: Soft, nondistended, patient is some mild tenderness in the incisional region of her cholecystectomy that no rebound this is not well localized. Negative for masses or hepatosplenomegaly. Negative for costovertebral tenderness. Pelvis: Stable nontender. 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: Deferred. Rectal: Deferred. Extremities: Atraumatic, negative for cords or calf pain. Neurovascular unremarkable. Neuro: Awake, alert, oriented. Cranial nerves II through XII unremarkable. Cerebellum unremarkable. Motor and sensory unremarkable throughout. Exam nonfocal. Diagnostics: CBC CMP amylase lipase UA urine culture sensitivity hCG acute abdominal series chest x-ray Therapeutics: Normal saline 1 L bolus Zofran 4 mg IV Impression: #1 observation 2 weeks status post cholecystectomy #2 postoperative abdominal pain #3 vomiting with dehydration Definitive disposition and diagnosis as appropriate pending reevaluation and review of above. mid abdominal Pain Score (Numeric/FACES): 8 - Related Data Allergies Allergy/AdvReac Type Severity Reaction Status Date / Time codeine Allergy Rash Verified 07/19/17 22:46 Sulfa (Sulfonamide Allergy Chills Verified 07/19/17 22:46 Antibiotics) Home Meds: Home Meds ClonazePAM [KlonoPIN] 1 mg PO BID 06/23/17 [History] Lansoprazole [Prevacid] 15 mg PO DAILY 06/23/17 [History] Sertraline [Zoloft] 100 mg PO DAILY 06/23/17 [History] traZODone 150 mg PO DAILY 06/23/17 [History] oxyCODONE 1 tab PO ASDIRECTED PRN 07/08/17 [History] Past Medical History - Past Health History Medical/Surgical History: Denies Medical/Surgical History HEENT History: Reports: Other (See Below) Other HEENT History: wears glasses/contacts Respiratory History: Reports: Asthma Gastrointestinal History: Reports: Cholelithiasis, GERD 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 History: Reports: None 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 REIMBURSEMENT SPECIALIST History: Reports: Musculoskeletal History: Reports: Fracture Psychiatric History: Reports: Anxiety, Bipolar, Depression, Psych Hospitalization(s), PTSD Endocrine/Metabolic History: Reports: Obesity/BMI 30+ - Infectious Disease History Infectious Disease History: Reports: Chicken Pox - Past Surgical History Head Surgeries/Procedures: Reports: None Respiratory Surgical History: Reports: None GI Surgical History: Reports: None Female Surgical History: Reports: Section Neurological Surgical History: Reports: Lumbar Spine Other Neurological Surgeries/Procedures: back surgery x2 Other Musculoskeletal Surgeries/Procedures:: surgical repair of left wrist Social & Family History - Family History Family Medical History: Noncontributory - Tobacco Use Smoking Status *Q: Never Smoker Second Hand Smoke Exposure: No - Caffeine Use Caffeine Use: Reports: Soda Caffeine Use Comment: 2drinks/day - Recreational Drug Use Recreational Drug Use: No ED ROS GENERAL - Review of Systems Review Of Systems: ROS reveals no pertinent complaints other than HPI. ED EXAM, GENERAL - Physical Exam Exam: See Below (See dictation) Course - Vital Signs Last Recorded V/S: Last Vital Signs Temp 36.0 C 07/19/17 22:41 Pulse 75 07/19/17 22:41 Resp 14 07/19/17 22:41 BP 120/81 07/19/17 22:41 Pulse Ox 96 07/19/17 22:41 - Orders/Labs/Meds Orders: Active Orders 24 hr Category Date Time Status Acute Abdomen Series [Abdomen 2V AP Upright Decub] [CR] Exams 07/19/17 22:46 Taken Stat CULTURE URINE [RM] Stat Lab 07/19/17 22:45 Received Sodium Chloride 0.9% [Saline Flush] Med 07/19/17 22:46 Active 10 ml FLUSH ASDIRECTED PRN Sodium Chloride 0.9% [Saline Flush] Med 07/19/17 22:46 Active 2.5 ml FLUSH ASDIRECTED PRN Saline Lock Insert [OM.PC] Stat Oth 07/19/17 22:39 Ordered Medication Orders Sodium Chloride (Saline Flush) 10 ml FLUSH ASDIRECTED PRN PRN Reason: Keep Vein Open Last Admin: 07/19/17 23:00 Dose: 10 ml Sodium Chloride (Saline Flush) 2.5 ml FLUSH ASDIRECTED PRN PRN Reason: Keep Vein Open Last Admin: 07/19/17 23:01 Dose: 2.5 ml Labs: Laboratory Tests 07/19/17 07/19/17 07/19/17 Range/Units 22:45 23:00 23:00 WBC 6.94 (4.0-11.0) K/uL RBC 4.55 (4.30-5.90) M/uL Hgb 14.3 (12.0-16.0) g/dL Hct 41.7 (36.0-46.0) % MCV 91.6 (80.0-98.0) fL MCH 31.4 (27.0-32.0) pg MCHC 34.3 (31.0-37.0) g/dL RDW Std Deviation 42.1 (28.0-62.0) fl RDW Coeff of Fina 13 (11.0-15.0) % Plt Count 265 (150-400) K/uL MPV 10.30 (7.40-12.00) fL Neut % (Auto) 53.5 (48.0-80.0) % Lymph % (Auto) 34.6 (16.0-40.0) % [place] % (Auto) 9.5 (0.0-15.0) % Eos % (Auto) 2.0 (0.0-7.0) % Baso % (Auto) 0.4 (0.0-1.5) % Neut # (Auto) 3.7 (1.4-5.7) K/uL Lymph # (Auto) 2.4 (0.6-2.4) K/uL [place] # (Auto) 0.7 (0.0-0.8) K/uL Eos # (Auto) 0.1 (0.0-0.7) K/uL Baso # (Auto) 0.0 (0.0-0.1) K/uL Nucleated RBC % 0.0 /100WBC Nucleated RBCs # 0 K/uL Sodium 140 (136-146) mmol/L Potassium 4.1 (3.5-5.1) mmol/L Chloride 105 (98-110) mmol/L Carbon Dioxide 23 (21-31) mmol/L BUN 18 (6.0-23.0) mg/dL Creatinine 0.9 (0.6-1.5) mg/dL Est Cr Clr Drug Dosing 77.11 mL/min Estimated GFR (MDRD) > 60.0 ml/min Glucose 95 (60-110) mg/dL Calcium 9.8 (8.8-10.8) mg/dL Total Bilirubin 0.3 (0.1-1.5) mg/dL AST 18 (5-40) IU/L ALT 36 (8-54) IU/L Alkaline Phosphatase 217 H (40-150) Total Protein 8.0 (6.0-8.0) g/dL Albumin 4.2 (3.5-5.0) g/dL Globulin 3.8 H (2.0-3.5) g/dL Albumin/Globulin Ratio 1.1 L (1.3-2.8) Amylase (10-90) U/L Lipase (7-80) U/L HCG, Quant mIU/mL Urine Color YELLOW Urine Appearance SLT CLOUDY Urine pH 6.0 (5.0-8.0) Ur Specific [place] >= 1.030 (1.001-1.035) Urine Protein TRACE (NEGATIVE) mg/dL Urine Glucose (UA) NEGATIVE (NEGATIVE) mg/dL Urine Ketones NEGATIVE (NEGATIVE) mg/dL Urine Occult Blood MODERATE (NEGATIVE) Urine Nitrite NEGATIVE (NEGATIVE) Urine Bilirubin NEGATIVE (NEGATIVE) Urine Urobilinogen 0.2 (<2.0) EU/dL Ur Leukocyte Esterase SMALL (NEGATIVE) Urine RBC 1-5 (0-2/HPF) Urine WBC 20-40 (0-5/HPF) Ur Epithelial Cells FEW (NONE-FEW) Urine Bacteria 1+ H (NEGATIVE) Urine Mucus FEW (NONE-MOD) 07/19/17 07/19/17 Range/Units 23:00 23:00 WBC (4.0-11.0) K/uL RBC (4.30-5.90) M/uL Hgb (12.0-16.0) g/dL Hct (36.0-46.0) % MCV (80.0-98.0) fL MCH (27.0-32.0) pg MCHC (31.0-37.0) g/dL RDW Std Deviation (28.0-62.0) fl RDW Coeff of Fina (11.0-15.0) % Plt Count (150-400) K/uL MPV (7.40-12.00) fL Neut % (Auto) (48.0-80.0) % Lymph % (Auto) (16.0-40.0) % [place] % (Auto) (0.0-15.0) % Eos % (Auto) (0.0-7.0) % Baso % (Auto) (0.0-1.5) % Neut # (Auto) (1.4-5.7) K/uL Lymph # (Auto) (0.6-2.4) K/uL [place] # (Auto) (0.0-0.8) K/uL Eos # (Auto) (0.0-0.7) K/uL Baso # (Auto) (0.0-0.1) K/uL Nucleated RBC % /100WBC Nucleated RBCs # K/uL Sodium (136-146) mmol/L Potassium (3.5-5.1) mmol/L Chloride (98-110) mmol/L Carbon Dioxide (21-31) mmol/L BUN (6.0-23.0) mg/dL Creatinine (0.6-1.5) mg/dL Est Cr Clr Drug Dosing mL/min Estimated GFR (MDRD) ml/min Glucose (60-110) mg/dL Calcium (8.8-10.8) mg/dL Total Bilirubin (0.1-1.5) mg/dL AST (5-40) IU/L ALT (8-54) IU/L Alkaline Phosphatase (40-150) Total Protein (6.0-8.0) g/dL Albumin (3.5-5.0) g/dL Globulin (2.0-3.5) g/dL Albumin/Globulin Ratio (1.3-2.8) Amylase 141 H (10-90) U/L Lipase 130 H (7-80) U/L HCG, Quant 4.6 mIU/mL Urine Color Urine Appearance Urine pH (5.0-8.0) Ur Specific [place] (1.001-1.035) Urine Protein (NEGATIVE) mg/dL Urine Glucose (UA) (NEGATIVE) mg/dL Urine Ketones (NEGATIVE) mg/dL Urine Occult Blood (NEGATIVE) Urine Nitrite (NEGATIVE) Urine Bilirubin (NEGATIVE) Urine Urobilinogen (<2.0) EU/dL Ur Leukocyte Esterase (NEGATIVE) Urine RBC (0-2/HPF) Urine WBC (0-5/HPF) Ur Epithelial Cells (NONE-FEW) Urine Bacteria (NEGATIVE) Urine Mucus (NONE-MOD) Meds: Medications Generic Name Dose Route Start Last Admin Trade Name Freq PRN Reason Stop Dose Admin Sodium Chloride 10 ml 07/19/17 22:46 07/19/17 23:00 Saline Flush FLUSH 10 ml ASDIRECTED PRN Administration Keep Vein Open Sodium Chloride 2.5 ml 07/19/17 22:46 07/19/17 23:01 Saline Flush FLUSH 2.5 ml ASDIRECTED PRN Administration Keep Vein Open Discontinued Medications Generic Name Dose Route Start Last Admin Trade Name Freq PRN Reason Stop Dose Admin Sodium Chloride 1,000 mls @ 999 mls/hr 07/19/17 22:47 07/19/17 23:13 Normal Saline IV 07/19/17 23:47 999 mls/hr STAT ONE Administration Ondansetron HCl 4 mg 07/19/17 22:47 07/20/17 00:29 Zofran IVPUSH 07/19/17 22:48 Not Given ONETIME ONE Promethazine HCl 12.5 mg 07/20/17 00:20 07/20/17 00:30 Phenergan IM 07/20/17 00:21 12.5 mg ONETIME ONE Administration Promethazine HCl Confirm 07/20/17 00:19 Phenergan Administered 07/20/17 00:20 Dose 25 mg .ROUTE .STK-MED ONE Departure - Departure Time of Disposition: 01:04 Disposition: Home, Self-Care 01 Condition: Good Clinical Impression: Pancreatitis, Abdominal pain - Discharge Information Referrals: Roman Olsen MD [Consulting Physician] - Forms: ED Department Discharge Additional Instructions: The following information is given to patients seen in the emergency department who are being discharged to home. This information is to outline your options for follow-up care. We provide all patients seen in our emergency department with a follow-up referral. The need for follow-up, as well as the timing and circumstances, are variable depending upon the specifics of your emergency department visit. If you don't have a primary care physician on staff, we will provide you with a referral. We always advise you to contact your personal physician following an emergency department visit to inform them of the circumstance of the visit and for follow-up with them and/or the need for any referrals to a consulting specialist. The emergency department will also refer you to a specialist when appropriate. This referral assures that you have the opportunity for followup care with a specialist. All of these measure are taken in an effort to provide you with optimal care, which includes your followup. Under all circumstances we always encourage you to contact your private physician who remains a resource for coordinating your care. When calling for followup care, please make the office aware that this follow-up is from your recent emergency room visit. If for any reason you are refused follow-up, please contact the [facility] emergency department at and asked to speak to the emergency department charge nurse. [facility] Specialty Care - General Surgery Professional Building [address] [place] [address], [address] [place] [address] Follow-up Gen. surgery tomorrow push fluids clear liquids return as needed as discussed - My Orders Last 24 Hours: My Active Orders 07/19/17 22:39 Saline Lock Insert [OM.PC] Stat 07/19/17 22:45 CULTURE URINE [RM] Stat 07/19/17 22:46 Acute Abdomen Series [Abdomen 2V AP Upright Decub] [CR] Stat Sodium Chloride 0.9% [Saline Flush] 10 ml FLUSH ASDIRECTED PRN Sodium Chloride 0.9% [Saline Flush] 2.5 ml FLUSH ASDIRECTED PRN - Assessment/Plan Last 24 Hours: My Active Orders 07/19/17 22:39 Saline Lock Insert [OM.PC] Stat 07/19/17 22:45 CULTURE URINE [RM] Stat 07/19/17 22:46 Acute Abdomen Series [Abdomen 2V AP Upright Decub] [CR] Stat Sodium Chloride 0.9% [Saline Flush] 10 ml FLUSH ASDIRECTED PRN Sodium Chloride 0.9% [Saline Flush] 2.5 ml FLUSH ASDIRECTED PRN
[2017-07-19 23:29] LABS: CHLORIDE,CL 105 mmol/L (98-110); SODIUM,NA 140 mmol/L (136-146)
[2017-07-20] MEDS ORDERED: Promethazine 25 MG/ML SDV ONE (00:19)
[2017-07-20] MEDS ORDERED: Promethazine 25 MG/ML SDV IM ONE (00:20)
[2017-07-20 05:19] VITALS: BP 136/94
--- NOTE | 2017-07-20 14:47 | CR ---
EXAM DATE: 07/19/17 PATIENT'S AGE: 47 Patient: MATTHEW DAWN Facility: [place], [place] Site . Site : 1970 Study: XRay Abdomen PA CHEST [id number]/28/2017 12:45:56 AM Ordering Physician: Chinyere Eli Final Report: Indication: Abdominal pain. Nausea. Decreased appetite since gallbladder removal 2 weeks ago. Diarrhea and painful urination starting today. Technique: Chest one view. Abdomen three views. Comparison: None. Findings: No pneumothorax, pleural effusion or airspace consolidation. Cardiac and mediastinal contours are within normal limits. The bowel gas pattern is nonobstructive. No free intraperitoneal gas. Right upper quadrant surgical clips. Soft tissues elsewhere as imaged are unremarkable. Postoperative changes of the cervical and lumbosacral spine. Impression: No evidence of acute disease. Dictated by Yobany Maier MD @ 07/20/2017 1:12:22 AM Dictated by: Yobany Maier MD @ 07/20/2017 01:12:29 (Electronic Signature) Report Signed by Proxy. [facility]
== END 2017-07-20 01:45 | disposition home or self-care (01) ==
LOC: MW.ED 22:29
DX: K85.90 Acute pancreatitis without necrosis or infection, unspecified (principal); E86.0 Dehydration; J45.909 Unspecified asthma, uncomplicated; K21.9 Gastro-esophageal reflux disease without esophagitis; E66.9 Obesity, unspecified; Z90.49 Acquired absence of other specified parts of digestive tract; Z88.5 Allergy status to narcotic agent; Z88.2 Allergy status to sulfonamides; Z79.899 Other long term (current) drug therapy; Z68.29 Body mass index [BMI] 29.0-29.9, adult
CPT/HCPCS: 74022; 80053; 81001; 82150; 83690; 84702; 85025; 87086; 96360; 96372; 99284; J2550; J7040

== ENCOUNTER 2017-09-15 09:45 | Day surgery (SDC) | payer OTHER, SELFPAY ==
[~2017-09-15 09:45] MED LIST changes: -Bupivacaine 0.25%/EPINEPHrine 1:200,000 10 ML SDV ONE; -Octyl 2-Cyanoacrylate 1 Tube ONE; -ceFAZolin 2 GM in Premix Bag 1 BAG IV ONE
[2017-09-15] MEDS ORDERED: Ondansetron 4 MG/2 ML SDV ONE (10:36)
[2017-09-15] MEDS ORDERED: fentaNYL 100 MCG/2 ML SDV ONE (10:37)
[2017-09-15] MEDS ORDERED: Propofol 200 MG/20 ML SDV ONE ×3 (10:37→12:28)
[2017-09-15] MEDS ORDERED: Midazolam 1 MG/ML 2 ML SDV ONE (10:37)
--- NOTE | 2017-09-15 11:33 | PCM.PREANE ---
Preanesthetic Assessment - Anesthesia/Transfusion/Family Hx Anesthesia History: Prior Anesthesia Without Reaction Family History of Anesthesia Reaction: No Transfusion History: No Prior Transfusion(s) Intubation History: Unknown - Review of Systems General: No Symptoms Pulmonary: No Symptoms Cardiovascular: No Symptoms Gastrointestinal: Abdominal Pain Neurological: No Symptoms Other: Reports: None - Physical Assessment NPO Status Date: 09/14/17 NPO Status Time: 22:00 O2 Sat by Pulse Oximetry: 97 Respiratory Rate: 16 Vital Signs: Last Vital Signs Temp 36.4 C 09/15/17 09:59 Pulse 81 09/15/17 09:59 Resp 16 09/15/17 09:59 BP 117/75 09/15/17 09:59 Pulse Ox 97 09/15/17 09:59 Height: 1.68 m Weight: 88.451 kg ASA Class: 2 Mental Status: Alert & Oriented x3 Airway Class: Mallampati = 2 Dentition: Reports: Normal Dentition Thyro-Mental Finger Breadths: 2 Mouth Opening Finger Breadths: 3 ROM/Head Extension: Full Lungs: Clear to Auscultation, Normal Respiratory Effort Cardiovascular: Regular Rate, Regular Rhythm - Allergies Allergies/Adverse Reactions: Allergies Allergy/AdvReac Type Severity Reaction Status Date / Time codeine Allergy Rash Verified 07/19/17 22:46 Sulfa (Sulfonamide Allergy Rash Verified 09/10/17 15:40 Antibiotics) - Blood Blood Available: No - Anesthesia Plan Pre-Op Medication Ordered: None - Acknowledgements Anesthesia Type Planned: MAC Pt an Appropriate Candidate for the Planned Anesthesia: Yes Alternatives and Risks of Anesthesia Discussed w Pt/Guardian: Yes Pt/Guardian Understands and Agrees with Anesthesia Plan: Yes PreAnesthesia Questionnaire - Past Health History Medical/Surgical History: Denies Medical/Surgical History HEENT History: Reports: Other (See Below) Other HEENT History: wears glasses/contacts Cardiovascular History: Reports: None Respiratory History: Reports: Asthma Gastrointestinal History: Reports: Cholelithiasis, GERD 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 History: Reports: None 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: Musculoskeletal History: Reports: Back Pain, Chronic, Fracture Neurological History: Reports: None Psychiatric History: Reports: Anxiety, Bipolar, Depression, Psych Hospitalization(s), PTSD, Suicide Attempt Endocrine/Metabolic History: Reports: Obesity/BMI 30+ - Infectious Disease History Infectious Disease History: Reports: Chicken Pox - Past Surgical History Head Surgeries/Procedures: Reports: None HEENT Surgical History: Reports: Cataract Surgery, Oral Surgery Other HEENT Surgeries/Procedures: dental implants Respiratory Surgical History: Reports: None GI Surgical History: Reports: Cholecystectomy Female Surgical History: Reports: Section (x3), Tubal Ligation Neurological Surgical History: Reports: C-Spine, Lumbar Spine Other Neurological Surgeries/Procedures: back surgery x2, neck surgery Other Musculoskeletal Surgeries/Procedures:: surgical repair of left wrist - SUBSTANCE USE Smoking Status *Q: Never Smoker Second Hand Smoke Exposure: No Recreational Drug Use History: No - HOME MEDS Home Medications: Home Meds ClonazePAM [KlonoPIN] 1 mg PO TID 06/23/17 [History] Sertraline [Zoloft] 150 mg PO DAILY 06/23/17 [History] traZODone 150 mg PO BEDTIME 06/23/17 [History] Lansoprazole [Prevacid] 40 mg PO DAILY 09/10/17 [History] - CURRENT (IN HOUSE) MEDS Current Meds: Current Medications Lactated Ringer's (Ringers, Lactated) 1,000 mls @ 125 mls/hr IV ASDIRECTED [facility] Last Admin: 09/15/17 10:18 Dose: 125 mls/hr Discontinued Medications Fentanyl (Sublimaze) Confirm Administered Dose 100 mcg .ROUTE .STK-MED ONE Stop: 09/15/17 10:38 Lidocaine HCl (Xylocaine-Mpf 1%) Confirm Administered Dose 5 ml .ROUTE .STK-MED ONE Stop: 09/15/17 10:37 Midazolam HCl (Versed 1 Mg/Ml) Confirm Administered Dose 2 mg .ROUTE .STK-MED ONE Stop: 09/15/17 10:38 Ondansetron HCl (Zofran) Confirm Administered Dose 4 mg .ROUTE .STK-MED ONE Stop: 09/15/17 10:37 Propofol (Diprivan 20 Ml) Confirm Administered Dose 200 mg .ROUTE .STK-MED ONE Stop: 09/15/17 10:38
--- NOTE | 2017-09-15 13:46 | PCM.OPNOTE ---
- General Post-Op/Procedure Note Date of Surgery/Procedure: 09/15/17 Operative Procedure(s): egd w bx. colonoscopy Findings: see dict [id number] Pre Op Diagnosis: BRBPR Post-Op Diagnosis: Same Anesthesia Technique: Moderate Sedation Primary Surgeon: Wilfredo White Pathology: egd bx Complications: None Condition: Good Free Text/Narrative:: Intake & Output 09/14/17 09/15/17 09/15/17 22:59 06:59 14:59 Intake Total 1100 Balance 1100
[2017-09-15 15:24] VITALS: BP 104/79
--- NOTE | 2017-09-15 18:27 | OR ---
SURGEON: Wilfredo White MD DATE OF PROCEDURE: 09/15/2017 PREOPERATIVE DIAGNOSES: 1. Abdominal pain. 2. Bright red blood per rectum. POSTOPERATIVE DIAGNOSES: 1. Gastroesophageal reflux disease. 2. Hemorrhoid. PROCEDURES PERFORMED: 1. Esophagogastroduodenoscopy with biopsy. 2. Colonoscopy. DESCRIPTION OF PROCEDURE: EGD: The patient was taken to the endoscopy room, and with the ARTIFICIAL STONE SETTER, Diprivan was administered. A well-lubricated EGD scope was gently inserted through the oropharynx, down the esophagus, passing through the gastroesophageal junction, into the stomach. The mucosa was examined upon the passage. Any etiology will be noted. Once in the stomach, we continued to advance to the distal antrum, passed through the pylorus into the second portion of the duodenum. Again, the mucosa was examined for any abnormality and etiology. The scope was then retrieved back to the stomach and then retroflexed to look at the fundus of the stomach. If a biopsy was indicated, we will biopsy the antrum, body, and gastroesophageal junction. The air will be sucked out while the scope is retrieved to reduce the patient's discomfort. The patient tolerated the procedure well. There were no intraoperative complications. Dr. White was present through the whole procedure. Prior to surgery, a time-out had been called, the patient identified, procedure identified and antibiotic administered. Colonoscopy: The patient was taken to the endoscopy room. A time out was called, patient identified, and procedure identified. Diprivan was then administrated. Patient went from awake to sleep, hearing doctor talking or door closing is normal. Perineum inspection and digital examination were then performed. A well-lubricated colonoscope was gently inserted through the rectum, advanced past the rectosigmoid junction, the descending colon, splenic flexure, transverse colon, hepatic flexure, ascending colon, arrived to the cecum. Cecum was identified as dictated in the finding. Then the scope was carefully withdrawn while attention was paid to the mucosal surface for any abnormality. Air will be sucked out during the scope withdrawal. At the rectum, retroflexed to examine any rectal diseases, fistula or hemorrhoids. Patient tolerated procedure well. There were no intraoperative complications, and Dr. White was present throughout the whole procedure. FINDINGS: EGD findings: The patient is easily sedated with ARTIFICIAL STONE SETTER and Diprivan. The patient is soundly snoring. Oropharynx and proximal esophagus are free of disease. Distal esophagus at distance 40 shows moderate salmon-colored change consistent with acid reflux. Stomach rugae is normal in appearance. A little bit bile. No food, blood, or ulcer observed. Antrum is mildly inflamed. The duodenum is grossly normal in appearance. On retroflexed look at the fundus of the stomach, there is no hiatal hernia. Biopsy done at antrum, body, GE junction at 40, and sucked out air while scope pulling out. Colonoscopy findings: The patient is easily sedated with ARTIFICIAL STONE SETTER and Diprivan. The patient is soundly snoring. Bowel prep is average to good. Very little liquid stool. Colon is pretty straight forward. Cecum indicated by ileocecal fold, one-to-one indentation, and light emittance is observed. Appendiceal orifice is not observed. The scope is pulling out while mucosa examined. The patient does not have polyp, diverticulosis, mass, growth, inflammation, stricture, ulceration, AV malformation, or bleeding; none of those. The patient has internal hemorrhoids and small tiny anal tag at 6 o'clock position and external hemorrhoid. The patient will benefit from repeat colonoscopy in 10 years from today or if clinically indicated otherwise. As always, thank you for your kind referral. ISSAC GUPTA /[id number]
== END 2017-09-15 13:35 | disposition home or self-care (01) ==
LOC: MW.SDS 09:45
PROVIDERS: ATTEND Surgery
DX: K64.4 Residual hemorrhoidal skin tags (principal); K64.8 Other hemorrhoids; F41.9 Anxiety disorder, unspecified; J45.909 Unspecified asthma, uncomplicated; F31.9 Bipolar disorder, unspecified; K21.9 Gastro-esophageal reflux disease without esophagitis; Z88.2 Allergy status to sulfonamides; Z88.5 Allergy status to narcotic agent; Z79.899 Other long term (current) drug therapy; Z91.5 Personal history of self-harm; Z98.49 Cataract extraction status, unspecified eye; Z98.51 Tubal ligation status; Z90.49 Acquired absence of other specified parts of digestive tract; Z98.890 Other specified postprocedural states
CPT/HCPCS: 43239; 45378; 88305; 88312; J2250; J2405; J3010; J7120; 00740; J2704

== ENCOUNTER 2017-10-19 15:32 | Emergency (ER) | payer OTHER, SELFPAY ==
[2017-10-19] MEDS ORDERED: Sodium Chloride 0.9% 1,000 ML IV ONE (15:50)
[2017-10-19] MEDS ORDERED: Ondansetron 4 MG/2 ML SDV IVPUSH ONE (15:50)
[2017-10-19] MEDS ORDERED: Pantoprazole 40 MG Vial IVPUSH ONE (15:51)
[2017-10-19] MEDS ORDERED: Alum Hydrox/Mag Hydrox/Simeth 15 ML, Metoclopramide 5 MG, Lidocaine 2% 5 ML PO ONE ×3 (15:51)
--- NOTE | 2017-10-19 15:52 | EDM.PDOC ---
ED HPI GENERAL MEDICAL PROBLEM - General Chief Complaint: Gastrointestinal Problem Stated Complaint: VOMITING AND DIARRHEA Time Seen by Provider: 10/19/17 15:51 Source of Information: Reports: Patient - History of Present Illness INITIAL COMMENTS - FREE TEXT/NARRATIVE: HISTORY AND PHYSICAL: History of present illness: She presents with nausea vomiting she has a history of GERD increased chest discomfort since vomiting began Review of systems: As per history of present illness and below otherwise all systems reviewed and negative. Past medical history: As per history of present illness and as reviewed below otherwise noncontributory. Surgical history: As per history of present illness and as reviewed below otherwise noncontributory. Social history: No reported history of drug or alcohol abuse. Family history: As per history of present illness and as reviewed below otherwise noncontributory. Physical exam: HEENT: Atraumatic, normocephalic, pupils reactive, negative for conjunctival pallor or scleral icterus, mucous membranes moist, throat clear, neck supple, nontender, trachea midline. Lungs: Clear to auscultation, breath sounds equal bilaterally, chest nontender. Heart: S1S2, regular, negative for clicks, rubs, or JVD. Abdomen: Soft, nondistended, nontender. Negative for masses or hepatosplenomegaly. Negative for costovertebral tenderness. Pelvis: Stable nontender. 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: Deferred. Rectal: Deferred. Extremities: Atraumatic, negative for cords or calf pain. Neurovascular unremarkable. Neuro: Awake, alert, oriented. Cranial nerves II through XII unremarkable. Cerebellum unremarkable. Motor and sensory unremarkable throughout. Exam nonfocal. Diagnostics: []CBC CMP amylase lipase cardiac enzymes EKG Chest 1 view Therapeutics: []1 L normal saline bolus Zofran 8 mg IV Proton X 80 mg IV GI cocktail Zofran 8 mg ODT every 8 when necessary #30 no refill Stop Imodium Pepto-Bismol with each loose stool Impression: Gastroenteritis []Nausea vomiting History of GERD Definitive disposition and diagnosis as appropriate pending reevaluation and review of above. Abdominal Pain Score (Numeric/FACES): 8 - Related Data Allergies Allergy/AdvReac Type Severity Reaction Status Date / Time codeine Allergy Rash Verified 10/19/17 15:46 Sulfa (Sulfonamide Allergy Rash Verified 10/19/17 15:46 Antibiotics) Home Meds: Home Meds ClonazePAM [KlonoPIN] 1 mg PO TID 06/23/17 [History] Sertraline [Zoloft] 150 mg PO DAILY 06/23/17 [History] traZODone 150 mg PO BEDTIME 06/23/17 [History] Lansoprazole [Prevacid] 40 mg PO DAILY 09/10/17 [History] Past Medical History - Past Health History Medical/Surgical History: Denies Medical/Surgical History HEENT History: Reports: Other (See Below) Other HEENT History: wears glasses/contacts Cardiovascular History: Reports: None Respiratory History: Reports: Asthma Gastrointestinal History: Reports: Cholelithiasis, GERD 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 History: Reports: None 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: Musculoskeletal History: Reports: Back Pain, Chronic, Fracture Neurological History: Reports: None Psychiatric History: Reports: Anxiety, Bipolar, Depression, Psych Hospitalization(s), PTSD, Suicide Attempt Endocrine/Metabolic History: Reports: Obesity/BMI 30+ - Infectious Disease History Infectious Disease History: Reports: Chicken Pox - Past Surgical History Head Surgeries/Procedures: Reports: None HEENT Surgical History: Reports: Cataract Surgery, Oral Surgery Other HEENT Surgeries/Procedures: dental implants Respiratory Surgical History: Reports: None GI Surgical History: Reports: Cholecystectomy Female Surgical History: Reports: Section, Tubal Ligation Neurological Surgical History: Reports: C-Spine, Lumbar Spine Other Neurological Surgeries/Procedures: back surgery x2, neck surgery Other Musculoskeletal Surgeries/Procedures:: surgical repair of left wrist Social & Family History - Family History Family Medical History: Noncontributory - Tobacco Use Smoking Status *Q: Never Smoker Second Hand Smoke Exposure: No - Caffeine Use Caffeine Use: Reports: Energy Drinks, Soda, Tea Caffeine Use Comment: 2drinks/day - Recreational Drug Use Recreational Drug Use: No ED ROS GENERAL - Review of Systems Review Of Systems: ROS reveals no pertinent complaints other than HPI. ED EXAM, GENERAL - Physical Exam Exam: See Below Course - Vital Signs Last Recorded V/S: Last Vital Signs Temp 97.0 F 10/19/17 15:38 Pulse 74 10/19/17 15:38 Resp 20 10/19/17 15:38 BP 135/96 H 10/19/17 15:38 Pulse Ox 96 10/19/17 15:38 - Orders/Labs/Meds Orders: Active Orders 24 hr Category Date Time Status Abdomen Pelvis w Cont [CT] Stat Exams 10/19/17 16:08 Taken Labs: Laboratory Tests 10/19/17 10/19/17 10/19/17 Range/Units 16:02 16:02 16:51 WBC 6.04 (4.0-11.0) K/uL RBC 4.06 L (4.30-5.90) M/uL Hgb 12.9 (12.0-16.0) g/dL Hct 37.4 (36.0-46.0) % MCV 92.1 (80.0-98.0) fL MCH 31.8 (27.0-32.0) pg MCHC 34.5 (31.0-37.0) g/dL RDW Std Deviation 44.2 (28.0-62.0) fl RDW Coeff of Fina 13 (11.0-15.0) % Plt Count 160 (150-400) K/uL MPV 10.90 (7.40-12.00) fL Neut % (Auto) 54.6 (48.0-80.0) % Lymph % (Auto) 32.8 (16.0-40.0) % [place] % (Auto) 8.3 (0.0-15.0) % Eos % (Auto) 4.0 (0.0-7.0) % Baso % (Auto) 0.3 (0.0-1.5) % Neut # (Auto) 3.3 (1.4-5.7) K/uL Lymph # (Auto) 2.0 (0.6-2.4) K/uL [place] # (Auto) 0.5 (0.0-0.8) K/uL Eos # (Auto) 0.2 (0.0-0.7) K/uL Baso # (Auto) 0.0 (0.0-0.1) K/uL Nucleated RBC % 0.0 /100WBC Nucleated RBCs # 0 K/uL Sodium 138 (136-146) mmol/L Potassium 4.2 (3.5-5.1) mmol/L Chloride 107 (98-110) mmol/L Carbon Dioxide 22 (21-31) mmol/L BUN 8 (6.0-23.0) mg/dL Creatinine 0.8 (0.6-1.5) mg/dL Est Cr Clr Drug Dosing 77.38 mL/min Estimated GFR (MDRD) > 60.0 ml/min Glucose 93 (60-110) mg/dL Calcium 8.8 (8.8-10.8) mg/dL Total Bilirubin 0.3 (0.1-1.5) mg/dL AST 42 H (5-40) IU/L ALT 43 (8-54) IU/L Alkaline Phosphatase 124 (40-150) Troponin I < 0.10 (0.0-0.29) NG/ML Total Protein 7.0 (6.0-8.0) g/dL Albumin 3.9 (3.5-5.0) g/dL Globulin 3.1 (2.0-3.5) g/dL Albumin/Globulin Ratio 1.3 (1.3-2.8) Amylase 59 (10-90) U/L Lipase 15 (7-80) U/L Urine Color YELLOW Urine Appearance CLEAR Urine pH 5.5 (5.0-8.0) Ur Specific [place] 1.020 (1.001-1.035) Urine Protein NEGATIVE (NEGATIVE) mg/dL Urine Glucose (UA) NEGATIVE (NEGATIVE) mg/dL Urine Ketones NEGATIVE (NEGATIVE) mg/dL Urine Occult Blood NEGATIVE (NEGATIVE) Urine Nitrite NEGATIVE (NEGATIVE) Urine Bilirubin NEGATIVE (NEGATIVE) Urine Urobilinogen 0.2 (<2.0) EU/dL Ur Leukocyte Esterase TRACE (NEGATIVE) Urine RBC 0-1 (0-2/HPF) Urine WBC 0-2 (0-5/HPF) Ur Epithelial Cells MODERATE (NONE-FEW) Urine Bacteria FEW (NEGATIVE) Meds: Medications Discontinued Medications Generic Name Dose Route Start Last Admin Trade Name Freq PRN Reason Stop Dose Admin Al Hydroxide/Mg Hydroxide 15 0 ml 10/19/17 15:51 ml/ Metoclopramide HCl 5 mg/ PO 10/19/17 15:52 Lidocaine HCl 5 ml ONETIME ONE Sodium Chloride 1,000 mls @ 999 mls/hr 10/19/17 15:50 10/19/17 16:45 Normal Saline IV 10/19/17 16:50 999 mls/hr STAT ONE Administration Iopamidol 100 ml 10/19/17 17:03 10/19/17 17:05 Isovue Multipack-370 (76%) IVPUSH 11/27/17 17:04 100 ml ONETIME STA Administration Ketorolac Tromethamine 30 mg 10/19/17 17:16 10/19/17 17:27 Toradol IVPUSH 10/19/17 17:17 30 mg ONETIME ONE Administration Morphine Sulfate 2 mg 10/19/17 17:14 10/19/17 17:16 Morphine IV 10/19/17 17:15 Not Given ONETIME ONE Morphine Sulfate 2 mg 10/19/17 17:16 10/19/17 17:26 Morphine IVPUSH 10/19/17 17:17 2 mg ONETIME ONE Administration Ondansetron HCl 8 mg 10/19/17 15:50 10/19/17 16:45 Zofran IVPUSH 10/19/17 15:51 8 mg ONETIME ONE Administration Pantoprazole Sodium 80 mg 10/19/17 15:51 10/19/17 16:51 Protonix Iv IVPUSH 10/19/17 15:52 80 mg .BOLUS ONE Administration Departure - Departure Time of Disposition: 18:27 Disposition: Home, Self-Care 01 Condition: Good Clinical Impression: Gastroenteritis - Discharge Information Referrals: Baylee Gonzalez PROPERTY CLERK [Primary Care Provider] - Forms: ED Department Discharge Additional Instructions: Medication as prescribed Recommend stopping Imodium Pepto-Bismol or Kaopectate with each loose stool Return if symptoms persist or worsen Follow-up with primary care in 2 weeks sooner as needed The following information is given to patients seen in the emergency department who are being discharged to home. This information is to outline your options for follow-up care. We provide all patients seen in our emergency department with a follow-up referral. The need for follow-up, as well as the timing and circumstances, are variable depending upon the specifics of your emergency department visit. If you don't have a primary care physician on staff, we will provide you with a referral. We always advise you to contact your personal physician following an emergency department visit to inform them of the circumstance of the visit and for follow-up with them and/or the need for any referrals to a consulting specialist. The emergency department will also refer you to a specialist when appropriate. This referral assures that you have the opportunity for follow-up care with a specialist. All of these measure are taken in an effort to provide you with optimal care, which includes your follow-up. Under all circumstances we always encourage you to contact your private physician who remains a resource for coordinating your care. When calling for follow-up care, please make the office aware that this follow-up is from your recent emergency room visit. If for any reason you are refused follow-up, please contact the [facility] emergency department at and asked to speak to the emergency department charge nurse. - My Orders Last 24 Hours: My Active Orders 10/19/17 16:08 Abdomen Pelvis w Cont [CT] Stat - Assessment/Plan Last 24 Hours: My Active Orders 10/19/17 16:08 Abdomen Pelvis w Cont [CT] Stat
--- NOTE | 2017-10-19 16:19 | CR ---
EXAMINATION: Portable chest radiograph. HISTORY: Shortness of breath. FINDINGS: The trachea is midline. The cardiomediastinal silhouette is within normal limits. No pulmonary infilt rates, effusions or pneumothorax. Osseous structures appear unremarkable. IMPRESSION: No acute cardiopulmonary process.
[2017-10-19 16:43] LABS: CHLORIDE,CL 107 mmol/L (98-110); SODIUM,NA 138 mmol/L (136-146)
[2017-10-19] MEDS ORDERED: Iopamidol 755 MG/ML 500 ML Multipack Bottle IVPUSH STA (17:03)
[2017-10-19] MEDS ORDERED: Morphine 10 MG/ML Syringe IV ONE (17:14)
[2017-10-19] MEDS ORDERED: Ketorolac 30 MG/ML SDV IVPUSH ONE (17:16)
[2017-10-19] MEDS ORDERED: Morphine 2 MG/ML Syringe IVPUSH ONE (17:16)
[2017-10-19 19:13] VITALS: BP 108/72
--- NOTE | 2017-10-20 10:36 | CT ---
EXAM DATE: 10/19/17 PATIENT'S AGE: 47 Patient: MATTHEW MARTINEZ Facility: [place], [place] Site . Site : 1970 Study: CT Abdomen/Pelvis W CONT [id number] 5:26:21 PM Ordering Physician: Yung Weems Final Report: HISTORY: Right lower quadrant pain with diarrhea and vomiting. TECHNIQUE: The abdomen and pelvis were scanned using helical technique 3 mm intervals after 1 cc of Isovue-370. Sagittal and coronal reconstructions were performed. COMPARISON: 26 June 2017. FINDINGS: Lung bases: Stable 9 mm nodule in the left lower lobe image 13 series 201. Liver and gallbladder: The liver parenchyma is homogeneous. Prior cholecystectomy. Spleen, pancreas and adrenal glands: Spleen is normal size. The pancreatic parenchyma is homogeneous. The extrahepatic common bile duct is distended to 8 mm without change. The adrenal glands are normal. Kidneys and bladder: Symmetric nephrograms. Partial duplication of the right kidney. No hydronephrosis. 4 mm nonobstructing stone is seen the upper pole of the right kidney. The bladder is incompletely distended and unremarkable in appearance. Retroperitoneum and lymph nodes: The abdominal aorta is normal caliber. There is a few tiny periaortic lymph nodes present. No pathologic periaortic lymphadenopathy is seen. There is a stable 1.6 x 1.3 cm soft tissue focus posterior left pelvic wall. GI tract: Small hiatal hernia. Stomach is decompressed. There is some fluid seen in nondilated small bowel loops. The appendix is normal. There is some stool and gas seen scattered throughout the colon. No all wall thickening. There is sigmoid diverticula without inflammatory change. Free air in the abdomen. No free fluid the pelvis. Pelvic organs: Stable 2.0 cm exophytic focus left fundus of the uterus most likely a fibroid. The adnexa are unremarkable. Abdominal wall: Small fat containing umbilical hernia without inflammatory change. Osseous structures: Posterior fusion of L4, L5 and S1 without change. IMPRESSION: 1. Stable dilatation of the extrahepatic common bile duct at 8 mm. This most likely is postsurgical in nature as the gallbladder is absent. No calcified choledocholithiasis. 2. Stable 4 mm nonobstructing stone upper pole right kidney. 3. Normal appendix. No evidence of bowel obstruction, free air or free fluid. 4. 1.6 cm soft tissue focus with foci of calcification posterior left hemipelvis unchanged from prior exam. Recommend follow up exam in 6 months to document continued stability. 5. Stable 9 mm pulmonary nodule left lower lobe. Dictated by Nimisha Machado MD @ 10/19/2017 6:22:47 PM Dictated by: Nimisha Machado MD @ 10/19/2017 18:23:41 (Electronic Signature) Report Signed by Proxy. ARON
== END 2017-10-19 19:08 | disposition home or self-care (01) ==
LOC: MW.ED 15:32
DX: K52.9 Noninfective gastroenteritis and colitis, unspecified (principal); K21.9 Gastro-esophageal reflux disease without esophagitis; Z88.2 Allergy status to sulfonamides; Z79.899 Other long term (current) drug therapy
CPT/HCPCS: 36415; 71010; 74177; 80053; 81001; 82150; 83690; 84484; 85025; 96361; 96374; 96375; 99284; C9113; J1885; J2270; J2405; J7040; Q9967; 99283

== ENCOUNTER 2017-12-04 13:32 | Emergency (ER) | payer OTHER, SELFPAY ==
[2017-12-04 14:58] LABS: CHLORIDE,CL 107 mmol/L (98-110); SODIUM,NA 139 mmol/L (136-146)
[2017-12-04 14:59] LABS: ACETAMINOPHEN 4.4 ug/mL
--- NOTE | 2017-12-04 15:34 | EDM.PDOCBH ---
ED HPI GENERAL MEDICAL PROBLEM - General Chief Complaint: Behavioral/Psych Stated Complaint: AMB Time Seen by Provider: 12/04/17 14:00 Source of Information: Reports: Patient History Limitations: Reports: No Limitations - History of Present Illness INITIAL COMMENTS - FREE TEXT/NARRATIVE: HISTORY AND PHYSICAL: History of present illness: [Patient is brought to the emergency room by ambulance after she experienced thoughts of suicide this morning. She admits to a 30 year history of depression and anxiety. She's been prescribed Zoloft, BuSpar, Xanax by Baylee Peoples. She does not feel as though medications are helping. Has had increased stress and in the life of her significant other. They apparently recently broke up, which has increased patient's tearfulness, hopelessness, and depression. History of suicide attempts greater than 10 years ago. States that she doesn't have a specific plan but admits that she has thought about using parts classifier knives that she has in the house to end her life. Today she was feeling worse than usual and called EMS for help. She states that if coming to the ER wasn't an option, she would have ended her life. Occasional ETOH use. Denies tobacco and drug use. States that she's otherwise been feeling well. ] Review of systems: As per history of present illness and below otherwise all systems reviewed and negative. Past medical history: As per history of present illness and as reviewed below otherwise noncontributory. Surgical history: As per history of present illness and as reviewed below otherwise noncontributory. Social history: No reported history of drug or alcohol abuse. Family history: As per history of present illness and as reviewed below otherwise noncontributory. Physical exam: HEENT: Atraumatic, normocephalic. Lungs: Clear to auscultation, breath sounds equal bilaterally. Heart: S1S2, regular, negative for clicks, rubs, or JVD. Abdomen: Soft, nondistended, nontender. Negative for masses, guarding or rebound. Pelvis: Stable nontender. 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: Deferred. Rectal: Deferred. Extremities: Atraumatic and without deformity. Neurovascular unremarkable. Neuro: Awake, alert, oriented. Motor and sensory unremarkable throughout. Exam nonfocal. Psych: Alert and oriented she interacts with this examiner appropriately. Her thoughts are congruent. She is emotional and tearful throughout conversation. Diagnostics: [CBC, CMP, UA, urine , EKG, urine drug screen, TSH, salicylates, acetaminophen, alcohol level, free T3] Impression: [Suicidal thoughts] Plan: [Discussed with patient that psychiatric services on an emergent basis are not available and [place] and that [facility] is the nearest facility with emergent psychiatric care. She is in agreement with being transferred to [facility] and states that as long as they will help her she is in agreement with going. Ground transport is arranged with local EMS services.] Definitive disposition and diagnosis as appropriate pending reevaluation and review of above. - Related Data Allergies Allergy/AdvReac Type Severity Reaction Status Date / Time codeine Allergy Rash Verified 12/04/17 14:15 Sulfa (Sulfonamide Allergy Rash Verified 12/04/17 14:15 Antibiotics) Home Meds: Home Meds Sertraline [Zoloft] 150 mg PO DAILY 06/23/17 [History] ALPRAZolam [Xanax] 0.5 mg PO TID PRN 12/04/17 [History] Zolpidem Tartrate [Ambien] 10 mg PO BEDTIME 12/04/17 [History] busPIRone [Buspar] 15 mg PO DAILY 12/04/17 [History] Past Medical History - Past Health History Medical/Surgical History: Denies Medical/Surgical History HEENT History: Reports: Other (See Below) Other HEENT History: wears glasses/contacts Cardiovascular History: Reports: None Respiratory History: Reports: Asthma Gastrointestinal History: Reports: Cholelithiasis, GERD 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 History: Reports: 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: Musculoskeletal History: Reports: Back Pain, Chronic, Fracture Neurological History: Reports: None Psychiatric History: Reports: Anxiety, Bipolar, Depression, Psych Hospitalization(s), PTSD, Suicide Attempt Endocrine/Metabolic History: Reports: Obesity/BMI 30+ - Infectious Disease History Infectious Disease History: Reports: Chicken Pox - Past Surgical History Head Surgeries/Procedures: Reports: None HEENT Surgical History: Reports: Cataract Surgery, Oral Surgery Other HEENT Surgeries/Procedures: dental implants Respiratory Surgical History: Reports: None GI Surgical History: Reports: Cholecystectomy Female Surgical History: Reports: Section, Tubal Ligation Neurological Surgical History: Reports: C-Spine, Lumbar Spine Other Neurological Surgeries/Procedures: back surgery x2, neck surgery Other Musculoskeletal Surgeries/Procedures:: surgical repair of left wrist Social & Family History - Family History Family Medical History: Noncontributory - Tobacco Use Smoking Status *Q: Never Smoker Second Hand Smoke Exposure: No - Caffeine Use Caffeine Use: Reports: Soda, Tea Caffeine Use Comment: 2drinks/day - Alcohol Use Days Per Week of Alcohol Use: 7 Number of Drinks Per Day: 10 Total Drinks Per Week: 70 Date of Last Drink: 12/04/17 Time of Last Drink: 11:00 - Recreational Drug Use Recreational Drug Use: No ED ROS GENERAL - Review of Systems Review Of Systems: ROS reveals no pertinent complaints other than HPI. ED EXAM, BEHAVIORAL HEALTH - Physical Exam Exam: See Below COURSE, BEHAVIORAL HEALTH COMP - Course Vital Signs: Last Vital Signs Temp 96.7 F 12/04/17 14:04 Pulse 112 H 12/04/17 14:04 Resp 16 12/04/17 14:04 BP 168/122 H 12/04/17 14:04 Pulse Ox 95 12/04/17 14:04 Orders, Labs, Meds: Active Orders 24 hr Category Date Time Status EKG Documentation Completion [RC] STAT Care 12/04/17 14:09 Active FREE T3 [REF] Stat Lab 12/04/17 14:21 Received Laboratory Tests 12/04/17 12/04/17 12/04/17 Range/Units 14:10 14:10 14:10 WBC (4.0-11.0) K/uL RBC (4.30-5.90) M/uL Hgb (12.0-16.0) g/dL Hct (36.0-46.0) % MCV (80.0-98.0) fL MCH (27.0-32.0) pg MCHC (31.0-37.0) g/dL RDW Std Deviation (28.0-62.0) fl RDW Coeff of Fina (11.0-15.0) % Plt Count (150-400) K/uL MPV (7.40-12.00) fL Neut % (Auto) (48.0-80.0) % Lymph % (Auto) (16.0-40.0) % [place] % (Auto) (0.0-15.0) % Eos % (Auto) (0.0-7.0) % Baso % (Auto) (0.0-1.5) % Neut # (Auto) (1.4-5.7) K/uL Lymph # (Auto) (0.6-2.4) K/uL [place] # (Auto) (0.0-0.8) K/uL Eos # (Auto) (0.0-0.7) K/uL Baso # (Auto) (0.0-0.1) K/uL Nucleated RBC % /100WBC Nucleated RBCs # K/uL Sodium (136-146) mmol/L Potassium (3.5-5.1) mmol/L Chloride (98-110) mmol/L Carbon Dioxide (21-31) mmol/L BUN (6.0-23.0) mg/dL Creatinine (0.6-1.5) mg/dL Est Cr Clr Drug Dosing mL/min Estimated GFR (MDRD) ml/min Glucose (60-110) mg/dL Calcium (8.8-10.8) mg/dL Magnesium (1.5-2.3) mEq/L Total Bilirubin (0.1-1.5) mg/dL AST (5-40) IU/L ALT (8-54) IU/L Alkaline Phosphatase (40-150) Total Protein (6.0-8.0) g/dL Albumin (3.5-5.0) g/dL Globulin (2.0-3.5) g/dL Albumin/Globulin Ratio (1.3-2.8) TSH 3rd Generation (0.47-5.0) uIU/mL Urine Color YELLOW Urine Appearance SLT CLOUDY Urine pH 6.0 (5.0-8.0) Ur Specific [place] 1.025 (1.001-1.035) Urine Protein TRACE (NEGATIVE) mg/dL Urine Glucose (UA) NEGATIVE (NEGATIVE) mg/dL Urine Ketones NEGATIVE (NEGATIVE) mg/dL Urine Occult Blood TRACE-LYSED (NEGATIVE) Urine Nitrite NEGATIVE (NEGATIVE) Urine Bilirubin NEGATIVE (NEGATIVE) Urine Urobilinogen 0.2 (<2.0) EU/dL Ur Leukocyte Esterase NEGATIVE (NEGATIVE) Urine RBC 0-1 (0-2/HPF) Urine WBC 0-1 (0-5/HPF) Ur Epithelial Cells FEW (NONE-FEW) Calcium Oxalate Crystal FEW (NEGATIVE) Urine Bacteria FEW (NEGATIVE) Urine HCG, Qual NEGATIVE (NEGATIVE) Salicylates (0-20) mg/dL Urine Opiates Screen NEGATIVE (NEGATIVE) Ur Oxycodone Screen NEGATIVE (NEGATIVE) Urine Methadone Screen NEGATIVE (NEGATIVE) Acetaminophen ug/mL Ur Barbiturates Screen NEGATIVE (NEGATIVE) Ur Phencyclidine Scrn NEGATIVE (NEGATIVE) Ur Amphetamine Screen NEGATIVE (NEGATIVE) U Methamphetamines Scrn NEGATIVE (NEGATIVE) U Benzodiazepines Scrn NEGATIVE (NEGATIVE) U Cocaine Metab Screen NEGATIVE (NEGATIVE) U Marijuana (THC) Screen NEGATIVE (NEGATIVE) Ethyl Alcohol mg/dL 12/04/17 12/04/17 Range/Units 14:21 14:21 WBC 8.61 (4.0-11.0) K/uL RBC 4.49 (4.30-5.90) M/uL Hgb 14.2 (12.0-16.0) g/dL Hct 41.0 (36.0-46.0) % MCV 91.3 (80.0-98.0) fL MCH 31.6 (27.0-32.0) pg MCHC 34.6 (31.0-37.0) g/dL RDW Std Deviation 43.6 (28.0-62.0) fl RDW Coeff of Fina 13 (11.0-15.0) % Plt Count 243 (150-400) K/uL MPV 10.50 (7.40-12.00) fL Neut % (Auto) 64.5 (48.0-80.0) % Lymph % (Auto) 25.7 (16.0-40.0) % [place] % (Auto) 8.8 (0.0-15.0) % Eos % (Auto) 0.5 (0.0-7.0) % Baso % (Auto) 0.5 (0.0-1.5) % Neut # (Auto) 5.6 (1.4-5.7) K/uL Lymph # (Auto) 2.2 (0.6-2.4) K/uL [place] # (Auto) 0.8 (0.0-0.8) K/uL Eos # (Auto) 0.0 (0.0-0.7) K/uL Baso # (Auto) 0.0 (0.0-0.1) K/uL Nucleated RBC % 0.0 /100WBC Nucleated RBCs # 0 K/uL Sodium 139 (136-146) mmol/L Potassium 3.2 L (3.5-5.1) mmol/L Chloride 107 (98-110) mmol/L Carbon Dioxide 20 L (21-31) mmol/L BUN 5 L (6.0-23.0) mg/dL Creatinine 0.8 (0.6-1.5) mg/dL Est Cr Clr Drug Dosing 80.51 mL/min Estimated GFR (MDRD) > 60.0 ml/min Glucose 100 (60-110) mg/dL Calcium 9.4 (8.8-10.8) mg/dL Magnesium 1.3 L (1.5-2.3) mEq/L Total Bilirubin 0.4 (0.1-1.5) mg/dL AST 21 (5-40) IU/L ALT 20 (8-54) IU/L Alkaline Phosphatase 100 (40-150) Total Protein 7.4 (6.0-8.0) g/dL Albumin 4.2 (3.5-5.0) g/dL Globulin 3.2 (2.0-3.5) g/dL Albumin/Globulin Ratio 1.3 (1.3-2.8) TSH 3rd Generation 1.14 (0.47-5.0) uIU/mL Urine Color Urine Appearance Urine pH (5.0-8.0) Ur Specific [place] (1.001-1.035) Urine Protein (NEGATIVE) mg/dL Urine Glucose (UA) (NEGATIVE) mg/dL Urine Ketones (NEGATIVE) mg/dL Urine Occult Blood (NEGATIVE) Urine Nitrite (NEGATIVE) Urine Bilirubin (NEGATIVE) Urine Urobilinogen (<2.0) EU/dL Ur Leukocyte Esterase (NEGATIVE) Urine RBC (0-2/HPF) Urine WBC (0-5/HPF) Ur Epithelial Cells (NONE-FEW) Calcium Oxalate Crystal (NEGATIVE) Urine Bacteria (NEGATIVE) Urine HCG, Qual (NEGATIVE) Salicylates < 5.0 (0-20) mg/dL Urine Opiates Screen (NEGATIVE) Ur Oxycodone Screen (NEGATIVE) Urine Methadone Screen (NEGATIVE) Acetaminophen 4.4 ug/mL Ur Barbiturates Screen (NEGATIVE) Ur Phencyclidine Scrn (NEGATIVE) Ur Amphetamine Screen (NEGATIVE) U Methamphetamines Scrn (NEGATIVE) U Benzodiazepines Scrn (NEGATIVE) U Cocaine Metab Screen (NEGATIVE) U Marijuana (THC) Screen (NEGATIVE) Ethyl Alcohol < 10.0 mg/dL Departure - Departure Time of Disposition: 15:30 Disposition: DC/Tfer to Acute Hospital 02 Condition: Good Clinical Impression: Suicidal thoughts - Discharge Information Referrals: PCP,Unknown [Primary Care Provider] - Forms: ED Department Discharge - My Orders Last 24 Hours: My Active Orders 12/04/17 14:09 EKG Documentation Completion [RC] STAT 12/04/17 14:21 FREE T3 [REF] Stat - Assessment/Plan Last 24 Hours: My Active Orders 12/04/17 14:09 EKG Documentation Completion [RC] STAT 12/04/17 14:21 FREE T3 [REF] Stat
[2017-12-04] MEDS ORDERED: LORazepam 1 MG Tab PO ONE (16:17)
[2017-12-04 18:08] VITALS: BP 131/88
== END 2017-12-04 16:45 ==
LOC: MW.ED 13:32
DX: R45.851 Suicidal ideations (principal); F31.9 Bipolar disorder, unspecified; Z79.899 Other long term (current) drug therapy; Z88.2 Allergy status to sulfonamides; Z88.5 Allergy status to narcotic agent
CPT/HCPCS: 80053; 80305; 81001; 81025; 83735; 84443; 84481; 85025; 99285; G0480; 36415; 93005; 99284

== ENCOUNTER 2021-07-05 19:01 | Emergency (ER) | payer OTHER ==
--- NOTE | 2021-07-05 19:36 | EDM.PDOC ---
ED HPI GENERAL MEDICAL PROBLEM - General Chief Complaint: Respiratory Problem Stated Complaint: COUGH, CHILLS, ABDOMINAL PAIN Time Seen by Provider: 07/05/21 19:08 Source of Information: Reports: Patient History Limitations: Reports: No Limitations - History of Present Illness INITIAL COMMENTS - FREE TEXT/NARRATIVE: Patient is a 51-year-old female brought in today for shortness of breath body aches and abdominal pain. States that she recently traveled here on Thursday and started having symptoms on Thursday she got tested for Covid which was negative on Thursday. He still feels short of breath at this time stuck in her chest has a nagging cough that is dry. Has diffuse abdominal pain is not made better or worse with anything she has an appetite but she still able to keep down liquids. She also reports some chills but no documented fevers at home has been trying [id number] meds without relief of her symptoms. Upper Chest Pain Score (Numeric/FACES): 3 - Related Data Allergies Allergy/AdvReac Type Severity Reaction Status Date / Time codeine Allergy Rash Verified 07/05/21 19:11 Sulfa (Sulfonamide Allergy Rash Verified 07/05/21 19:11 Antibiotics) Home Meds: Home Meds Sertraline [Zoloft] 100 mg PO DAILY 06/23/17 [History] ALPRAZolam [Xanax] 0.5 mg PO TID PRN 12/04/17 [History] Azithromycin 250 mg PO DAILY 5 Days #6 tablet 07/05/21 [Rx] HCTZ/Triamterene [Dyazide 25-37.5 MG] 1 cap PO DAILY 07/05/21 [History] Metoprolol Tartrate 25 mg PO DAILY 07/05/21 [History] Mirtazapine [Remeron] 30 mg PO DAILY 07/05/21 [History] Omeprazole Magnesium [Prilosec Otc] 30 mg PO DAILY 07/05/21 [History] Rosuvastatin Calcium [Crestor] 40 mg PO DAILY 07/05/21 [History] Past Medical History - Past Health History Medical/Surgical History: Denies Medical/Surgical History HEENT History: Reports: Other (See Below) Other HEENT History: wears glasses/contacts Cardiovascular History: Reports: High Cholesterol, Hypertension Respiratory History: Reports: Asthma Gastrointestinal History: Reports: Cholelithiasis, GERD 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 History: Reports: None 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: Musculoskeletal History: Reports: Back Pain, Chronic, Fracture Neurological History: Reports: None Psychiatric History: Reports: Anxiety, Bipolar, Depression, Psych Hospitalization(s), PTSD, Suicide Attempt Endocrine/Metabolic History: Reports: Obesity/BMI 30+ - Infectious Disease History Infectious Disease History: Reports: Chicken Pox - Past Surgical History Head Surgeries/Procedures: Reports: None HEENT Surgical History: Reports: Cataract Surgery, Oral Surgery Other HEENT Surgeries/Procedures: dental implants Respiratory Surgical History: Reports: None GI Surgical History: Reports: Cholecystectomy Female Surgical History: Reports: Section, Tubal Ligation Neurological Surgical History: Reports: C-Spine, Lumbar Spine Other Neurological Surgeries/Procedures: back surgery x2, neck surgery Other Musculoskeletal Surgeries/Procedures:: surgical repair of left wrist Social & Family History - Family History Family Medical History: No Pertinent Family History - Tobacco Use Tobacco Use Status *Q: Never Tobacco User - Caffeine Use Caffeine Use: Reports: Soda, Tea Caffeine Use Comment: 2drinks/day - Recreational Drug Use Recreational Drug Use: No ED ROS GENERAL - Review of Systems Review Of Systems: See Below Constitutional: Reports: No Symptoms HEENT: Reports: No Symptoms Respiratory: Reports: Shortness of Breath Cardiovascular: Reports: Chest Pain Endocrine: Reports: No Symptoms GI/Abdominal: Reports: No Symptoms : Reports: No Symptoms Musculoskeletal: Reports: No Symptoms Skin: Reports: No Symptoms Neurological: Reports: No Symptoms Psychiatric: Reports: No Symptoms Hematologic/Lymphatic: Reports: No Symptoms Immunologic: Reports: No Symptoms ED EXAM, GENERAL - Physical Exam Exam: See Below Exam Limited By: No Limitations General Appearance: Alert, WD/WN, No Apparent Distress Eye Exam: Bilateral Eye: EOMI, PERRL Respiratory/Chest: No Respiratory Distress, Wheezing Cardiovascular: Normal Peripheral Pulses, Regular Rate, Rhythm GI/Abdominal: Normal Bowel Sounds, Soft, Non-Tender Neurological: Alert, Oriented, Normal Cognition, Normal Gait #1 Interpretation EKG Date: 07/05/21 Time: 19:49 Rhythm: NSR Rate (Beats/Min): 96 ST-T: Normal Course - Vital Signs Last Recorded V/S: Last Vital Signs Temp 97.6 F 07/05/21 19:06 Pulse 81 07/05/21 21:53 Resp 20 07/05/21 21:53 BP 151/89 H 07/05/21 21:53 Pulse Ox 95 07/05/21 21:53 - Orders/Labs/Meds Orders: Active Orders 24 hr Category Date Time Status EKG 12 Lead [EKG Documentation Completion] [RC] STAT Care 07/05/21 19:39 Active Labs: Laboratory Tests 07/05/21 07/05/21 07/05/21 Range/Units 19:30 19:30 19:30 WBC 7.40 (4.0-11.0) K/uL RBC 5.09 (4.30-5.90) M/uL Hgb 14.3 (12.0-16.0) g/dL Hct 43.1 (36.0-46.0) % MCV 84.7 (80.0-98.0) fL MCH 28.1 (27.0-32.0) pg MCHC 33.2 (31.0-37.0) g/dL RDW Std Deviation 49.6 (28.0-62.0) fl RDW Coeff of Fina 16 H (11.0-15.0) % Plt Count 210 (150-400) K/uL MPV 10.40 (7.40-12.00) fL Neut % (Auto) 56.4 (48.0-80.0) % Lymph % (Auto) 34.3 (16.0-40.0) % [place] % (Auto) 6.6 (0.0-15.0) % Eos % (Auto) 2.3 (0.0-7.0) % Baso % (Auto) 0.4 (0.0-1.5) % Neut # (Auto) 4.2 (1.4-5.7) K/uL Lymph # (Auto) 2.5 H (0.6-2.4) K/uL [place] # (Auto) 0.5 (0.0-0.8) K/uL Eos # (Auto) 0.2 (0.0-0.7) K/uL Baso # (Auto) 0.0 (0.0-0.1) K/uL Nucleated RBC % 0.0 /100WBC Nucleated RBCs # 0 K/uL D-Dimer, Quantitative (0.0-0.50) mg/L FEU Sodium 140 (136-145) mmol/L Potassium 3.8 (3.5-5.1) mmol/L Chloride 101 (98-107) mmol/L Carbon Dioxide 23.0 (21.0-32.0) mmol/L BUN 13 (7.0-18.0) mg/dL Creatinine 1.0 (0.6-1.0) mg/dL Est Cr Clr Drug Dosing 63.99 mL/min Estimated GFR (MDRD) 58.2 ml/min Glucose 122 H (74-106) mg/dL Calcium 9.0 (8.5-10.1) mg/dL Phosphorus 3.2 (2.6-4.7) mg/dL Magnesium 2.0 (1.8-2.4) mg/dL Total Bilirubin 0.4 (0.2-1.0) mg/dL AST 87 H (15-37) IU/L ALT 79 H (14-63) IU/L Alkaline Phosphatase 236 H (46-116) U/L Troponin I < 0.050 (0.000-0.056) ng/mL Total Protein 8.0 (6.4-8.2) g/dL Albumin 4.1 (3.4-5.0) g/dL Globulin 3.9 (2.6-4.0) g/dL Albumin/Globulin Ratio 1.1 (0.9-1.6) Lipase 97 (73-393) U/L Urine Color Urine Appearance Urine pH (5.0-8.0) Ur Specific [place] (1.001-1.035) Urine Protein (NEGATIVE) mg/dL Urine Glucose (UA) (NEGATIVE) mg/dL Urine Ketones (NEGATIVE) mg/dL Urine Occult Blood (NEGATIVE) Urine Nitrite (NEGATIVE) Urine Bilirubin (NEGATIVE) Urine Ictotest Urine Urobilinogen (<2.0) EU/dL Ur Leukocyte Esterase (NEGATIVE) Urine RBC (0-2/HPF) Urine WBC (0-5/HPF) Ur Epithelial Cells (NONE-FEW) Urine Bacteria (NEGATIVE) Urine Mucus (NONE-MOD) SARS-CoV-2 RNA (GERONIMO) NEGATIVE (NEGATIVE) 07/05/21 07/05/21 Range/Units 19:30 19:30 WBC (4.0-11.0) K/uL RBC (4.30-5.90) M/uL Hgb (12.0-16.0) g/dL Hct (36.0-46.0) % MCV (80.0-98.0) fL MCH (27.0-32.0) pg MCHC (31.0-37.0) g/dL RDW Std Deviation (28.0-62.0) fl RDW Coeff of Fina (11.0-15.0) % Plt Count (150-400) K/uL MPV (7.40-12.00) fL Neut % (Auto) (48.0-80.0) % Lymph % (Auto) (16.0-40.0) % [place] % (Auto) (0.0-15.0) % Eos % (Auto) (0.0-7.0) % Baso % (Auto) (0.0-1.5) % Neut # (Auto) (1.4-5.7) K/uL Lymph # (Auto) (0.6-2.4) K/uL [place] # (Auto) (0.0-0.8) K/uL Eos # (Auto) (0.0-0.7) K/uL Baso # (Auto) (0.0-0.1) K/uL Nucleated RBC % /100WBC Nucleated RBCs # K/uL D-Dimer, Quantitative 0.80 H (0.0-0.50) mg/L FEU Sodium (136-145) mmol/L Potassium (3.5-5.1) mmol/L Chloride (98-107) mmol/L Carbon Dioxide (21.0-32.0) mmol/L BUN (7.0-18.0) mg/dL Creatinine (0.6-1.0) mg/dL Est Cr Clr Drug Dosing mL/min Estimated GFR (MDRD) ml/min Glucose (74-106) mg/dL Calcium (8.5-10.1) mg/dL Phosphorus (2.6-4.7) mg/dL Magnesium (1.8-2.4) mg/dL Total Bilirubin (0.2-1.0) mg/dL AST (15-37) IU/L ALT (14-63) IU/L Alkaline Phosphatase (46-116) U/L Troponin I (0.000-0.056) ng/mL Total Protein (6.4-8.2) g/dL Albumin (3.4-5.0) g/dL Globulin (2.6-4.0) g/dL Albumin/Globulin Ratio (0.9-1.6) Lipase (73-393) U/L Urine Color YELLOW Urine Appearance SLT CLOUDY Urine pH 6.0 (5.0-8.0) Ur Specific [place] >= 1.030 (1.001-1.035) Urine Protein NEGATIVE (NEGATIVE) mg/dL Urine Glucose (UA) NEGATIVE (NEGATIVE) mg/dL Urine Ketones NEGATIVE (NEGATIVE) mg/dL Urine Occult Blood NEGATIVE (NEGATIVE) Urine Nitrite NEGATIVE (NEGATIVE) Urine Bilirubin SMALL H (NEGATIVE) Urine Ictotest NEGATIVE Urine Urobilinogen 0.2 (<2.0) EU/dL Ur Leukocyte Esterase SMALL H (NEGATIVE) Urine RBC 0-2 (0-2/HPF) Urine WBC 2-5 (0-5/HPF) Ur Epithelial Cells RARE (NONE-FEW) Urine Bacteria FEW (NEGATIVE) Urine Mucus LIGHT (NONE-MOD) SARS-CoV-2 RNA (GERONIMO) (NEGATIVE) Meds: Medications Discontinued Medications Generic Name Dose Route Start Last Admin Trade Name Freq PRN Reason Stop Dose Admin Iopamidol 100 ml 07/05/21 21:06 07/05/21 22:04 Iopamidol 755 Mg/Ml 100 Ml Bottle IVPUSH 07/05/21 21:07 100 ml ONETIME ONE Administration - Re-Assessments/Exams Free Text/Narrative Re-Assessment/Exam: 07/05/21 23:08 Patient CTs are negative for PEs. Patient does have a possible viral pneumonitis. Patient will be discharged home. Departure - Departure Time of Disposition: 23:08 Disposition: Home, Self-Care 01 Condition: Good Clinical Impression: Pneumonitis - Discharge Information *PRESCRIPTION DRUG MONITORING PROGRAM REVIEWED*: Not Applicable *COPY OF PRESCRIPTION DRUG MONITORING REPORT IN PATIENT ZAC: Not Applicable Instructions: Pneumonitis Referrals: Baylee Gonzalez NP [Primary Care Provider] - Forms: ED Department Discharge Additional Instructions: The following information is given to patients seen in the emergency department who are being discharged to home. This information is to outline your options for follow-up care. We provide all patients seen in our emergency department with a follow-up referral. The need for follow-up, as well as the timing and circumstances, are variable depending upon the specifics of your emergency department visit. If you don't have a primary care physician on staff, we will provide you with a referral. We always advise you to contact your personal physician following an emergency department visit to inform them of the circumstance of the visit and for follow-up with them and/or the need for any referrals to a consulting specialist. The emergency department will also refer you to a specialist when appropriate. This referral assures that you have the opportunity for follow-up care with a specialist. All of these measure are taken in an effort to provide you with optimal care, which includes your follow-up. Under all circumstances we always encourage you to contact your private physician who remains a resource for coordinating your care. When calling for follow-up care, please make the office aware that this follow-up is from your recent emergency room visit. If for any reason you are refused follow-up, please contact the [facility] Emergency Department at and asked to speak to the emergency department charge nurse. Please follow up with your primary care physician. If you do not have a primary care physician, see below: [facility] [address] [place] [id number] My [facility] [address] [place] [id number] You were seen today for shortness of breath and cough and body aches. You is concerned about Covid. Your Covid test is negative. Your x-ray showed a possible pneumonitis. We sent home some steroids and some antibiotics and. Please follow-up to primary care physician if you have any other concerning signs symptoms please return to the ED. Sepsis Event Note (ED) - Focused Exam Vital Signs: Vital Signs Temp Pulse Resp BP Pulse Ox 07/05/21 21:53 81 20 151/89 H 95 07/05/21 21:15 83 20 144/97 H 97 07/05/21 19:06 97.6 F 106 H 16 151/109 H 95 - My Orders Last 24 Hours: My Active Orders 07/05/21 19:39 EKG 12 Lead [EKG Documentation Completion] [RC] STAT - Assessment/Plan Last 24 Hours: My Active Orders 07/05/21 19:39 EKG 12 Lead [EKG Documentation Completion] [RC] STAT Plan: Patient is a 51-year-old female who presents today for body aches cough and shortness of breath. Patient is concerned about Covid was recently tested on Thursday was negative. Will obtain labs x-ray and CT scans reassess patient.
[2021-07-05 20:25] LABS: BLOOD UREA NITROGEN,BUN 13 mg/dL (7.0-18.0); CHLORIDE,CL 101 mmol/L (98-107); GLUCOSE RANDOM 122 mg/dL (74-106); LIPASE 97 U/L (73-393); POTASSIUM,K 3.8 mmol/L (3.5-5.1); SODIUM,NA 140 mmol/L (136-145)
[2021-07-05] MEDS ORDERED: Iopamidol 755 Mg/ML 100 ML Bottle IVPUSH ONE (21:06)
--- NOTE | 2021-07-05 22:56 | CT ---
Indication: Abdominal pain Technique: Postcontrast CT abdomen and pelvis. 100 cc Isovue 370 intravenous contrast. Please note that all CT scans at this facility use dose modulation, iterative reconstruction, and/or weight-based dosing when appropriate to reduce radiation dose to as low as reasonably achievable. Comparison: 10/19/2017 Findings: Lung bases are clear. No pleural effusion or infiltrate. Fatty infiltration of the liver. Mild enlargement of the liver. Also mild enlargement of the spleen. Spleen measures 13.1 cm. Liver measures 21.3 cm. Gallbladder absent. No biliary obstruction or intrahepatic mass. Normal pancreas. Adrenal glands normal. Normal left kidney. Nonobstructing stone again noted within the right kidney measuring 6 millimeters. Postop changes lumbar spine. No bowel obstruction. Normal bladder. Exophytic fibroid left uterine fundus measuring 2.7 cm, unchanged. Normal appendix. Impression: Normal appendix. No evidence of enteritis or colitis. No bowel obstruction. No inflammatory change. Chronic nonobstructing stone right kidney. Stable exophytic fibroid arising from the left side of the uterus. Status post cholecystectomy. No biliary obstruction. Hepatic steatosis. Please note that all CT scans at this facility use dose modulation, iterative reconstruction, and/or weight-based dosing when appropriate to reduce radiation dose to as low as reasonably achievable. Dictated by Samuel Gold MD @ 07/05/2021 10:54:[address] Samuel Gold @ Jul 05 2021 10:54PM
--- NOTE | 2021-07-05 23:06 | CT ---
INDICATION: Shortness of breath COMPARISON: 01/01/2018 TECHNIQUE: CT volumetric acquisition was performed of the thorax during intravenous infusion of 100 cc Isovue 370 nonionic intravenous contrast. Please note that all CT scans at this facility use dose modulation, iterative reconstruction, and/or weight-based dosing when appropriate to reduce radiation dose to as low as reasonably achievable. FINDINGS: There is no pulmonary embolism in the main, lobar or segmental pulmonary arteries. Stable nodule within the left lower lobe measuring 8 millimeters. Mildly prominent hilar lymph nodes measuring up to 1.2 cm. No pleural or pericardial effusion. No fracture. Fatty infiltration of the liver. No aortic dissection or aneurysm. Patchy parenchymal densities noted in both lung bases bronchial wall thickening. IMPRESSION: No evidence of pulmonary thromboembolism. Bilateral lower lobe bronchial wall thickening and faint parenchymal densities suggesting viral pneumonitis. Please note that all CT scans at this facility use dose modulation, iterative reconstruction, and/or weight-based dosing when appropriate to reduce radiation dose to as low as reasonably achievable. Dictated by Samuel Gold MD @ 07/05/2021 11:03:[address] Samuel Gold @ Jul 05 2021 11:03PM
[2021-07-05] MEDS ORDERED: Dexamethasone 10 MG/ML SDV IVPUSH ONE (23:10)
[2021-07-06 02:07] VITALS: BP 148/90; PULSE 94
== END 2021-07-05 23:25 | disposition home or self-care (01) ==
LOC: MW.ED 19:01
DX: J18.9 Pneumonia, unspecified organism (principal); E78.00 Pure hypercholesterolemia, unspecified; I10 Essential (primary) hypertension; K21.9 Gastro-esophageal reflux disease without esophagitis; E66.9 Obesity, unspecified; Z68.33 Body mass index [BMI] 33.0-33.9, adult; Z20.822 Contact with and (suspected) exposure to COVID-19; Z79.899 Other long term (current) drug therapy; Z88.5 Allergy status to narcotic agent; Z88.2 Allergy status to sulfonamides
CPT/HCPCS: 36415; 71275; 74177; 80053; 81001; 83690; 83735; 84100; 84484; 85025; 85379; 87635; 93005; 96374; 99285; J1100; Q9967; U0002

== ENCOUNTER 2021-12-19 13:12 | Emergency (ER) | payer OTHER ==
[2021-12-19] MEDS ORDERED: Sodium Chloride 0.9% 2.5 ML Syringe FLUSH PRN (13:14)
[2021-12-19] MEDS ORDERED: Ondansetron 4 MG/2 ML SDV IVPUSH ONE (13:14)
[2021-12-19] MEDS ORDERED: Sodium Chloride 0.9% 10 ML Syringe FLUSH PRN (13:14)
[2021-12-19] MEDS ORDERED: Morphine 4 MG/ML VIAL IVPUSH ONE (13:14)
[2021-12-19 14:05] LABS: BLOOD UREA NITROGEN,BUN 9 mg/dL (7.0-18.0); CARBON DIOXIDE,CO2 26.6 mmol/L (21.0-32.0); CHLORIDE,CL 105 mmol/L (98-107); GLUCOSE RANDOM 166 mg/dL (74-106); POTASSIUM,K 4.1 mmol/L (3.5-5.1); SODIUM,NA 141 mmol/L (136-145)
[2021-12-19] MEDS ORDERED: Ketorolac 30 MG/ML SDV IVPUSH ONE (14:35)
[2021-12-19 15:18] VITALS: BP 147/78; PULSE 84
== END 2021-12-19 15:54 | disposition home or self-care (01) ==
LOC: MW.ED 13:12
DX: M54.50 Low back pain, unspecified (principal); G89.11 Acute pain due to trauma; E78.00 Pure hypercholesterolemia, unspecified; I10 Essential (primary) hypertension; K21.9 Gastro-esophageal reflux disease without esophagitis; E66.9 Obesity, unspecified; Z68.30 Body mass index [BMI] 30.0-30.9, adult; Z88.5 Allergy status to narcotic agent; Z88.2 Allergy status to sulfonamides; Z79.899 Other long term (current) drug therapy
CPT/HCPCS: 36415; 70450; 71045; 72125; 72128; 72131; 72170; 73100; 80053; 85025; 96374; 96375; 99284; J1885; J2270; J2405; J3360